=== PATIENT | female | born 1965 | race Caucasian/White ===

== ENCOUNTER 2023-05-16 17:42 | Emergency (ER) | payer BC, SELFPAY ==
[2023-05-16 17:52] VITALS: BP 170/102; PULSE 74; RESP 20; TEMP 37.1; O2SAT 98; BMI 33.8
[2023-05-16 18:09] VITALS: RESP 18
--- NOTE | 2023-05-16 18:27 | ED_ITS ---
Documented by User: Ivan Reece 05/16/23 19:03 HPI - General Adult General Chief complaint: Eye Problems Stated complaint: HYPERTENSION Time Seen by Provider: 05/16/23 17:52 Source: patient Mode of arrival: walk-in Limitations: no limitations History of Present Illness HPI narrative: patient was found to have elevated BP at a physician visit last week. Since then she has been checking her BP at home and recording elevated readings - some have been as high as 179 systolic. She is usually symptom-free but today she had chest pressure, shortness of breath and dizziness and her BP was over 170 systolic and 100 diastolic. She had her family bring her to the ED. SHe is not currently taking anything for her BP. Related Data Home Medications Medication Instructions Recorded Confirmed fluoxetine 20 mg capsule 30 mg PO DAILY 05/16/23 05/16/23 meloxicam 15 mg tablet 15 mg PO DAILY 05/16/23 05/16/23 oxybutynin chloride 15 mg 15 mg PO DAILY 05/16/23 05/16/23 tablet,extended release 24 hr simvastatin 20 mg tablet (Zocor) 20 mg PO DAILY 05/16/23 05/16/23 Previous Rx's Medication Instructions Recorded lisinopril 5 mg tablet 5 mg PO DAILY #30 tabs 05/16/23 Allergies Allergy/AdvReac Type Severity Reaction Status Date / Time No Known Drug Allergies Allergy Verified 05/16/23 17:56 [facility] Medical History (Updated 05/16/23 @ 19:00 by Ivan Reece) Social History Smoking status: Current every day smoker Exam Narrative Exam Narrative: Nurses notes and vital signs reviewed and patient is not hypoxic. afebrile BP initially 170/102 next BP was 138/90 General: Well-appearing and in no apparent distress. Skin: Warm, dry, no pallor noted. Head: Normocephalic, atraumatic. Eye: Pupils are equal, round and EOMI. No scleral icterus. Cardiovascular: Regular Rate and Rhythm without murmur, gallop or rub. Respiratory: No accessory muscle use or respiratory distress. Lungs are clear to auscultation, no wheezing, rales or rhonchi Musculoskeletal: normal ROM, no calf or popliteal tenderness, no lower extremity edema/swelling Neurological: A&O x4. No cranial nerve dysfunction observed. No truncal ataxia. Moves all extremities. Sensation intact. Psychiatric: Cooperative and interactive. Normal mood and affect. Constitutional Vital Signs - 24 hr 05/16/23 17:52 05/16/23 18:09 05/16/23 18:30 Temperature 98.8 F Pulse Rate [Monitor] 74 65 Respiratory Rate 20 18 16 Blood Pressure [Left Arm] 170/102 H 138/90 H Pulse Oximetry 98 97 Oxygen Delivery Method Room Air Room Air 05/16/23 19:02 05/16/23 19:21 Temperature Pulse Rate [Monitor] 60 62 Respiratory Rate 18 20 Blood Pressure [Left Arm] 135/86 H 146/86 H Pulse Oximetry 93 L 93 L Oxygen Delivery Method Room Air Room Air Course Vital Signs Vital signs: Vital Signs Temperature 98.8 F 05/16/23 17:52 Pulse Rate 74 05/16/23 17:52 Respiratory Rate 20 05/16/23 17:52 Blood Pressure 170/102 H 05/16/23 17:52 Pulse Oximetry 98 05/16/23 17:52 Oxygen Delivery Method Room Air 05/16/23 17:52 Temperature 98.8 F 05/16/23 17:52 Pulse Rate 62 05/16/23 19:21 Respiratory Rate 20 05/16/23 19:21 Blood Pressure 146/86 H 05/16/23 19:21 Pulse Oximetry 93 L 05/16/23 19:21 Oxygen Delivery Method Room Air 05/16/23 19:21 Medical Decision Making MDM Narrative Medical decision making narrative: patient experienced chest pressure and dizziness earlier in the day and her blood pressures found be elevated at home. She presents to the emergency department had a blood pressure of 170/102. Still had some residual symptoms but they resolved as BP normalized. . Patient was placed on millstone cleaner and EKG obtained. Blood drawn and sent for evaluation. EKG normal. BP decreased without any treatment although Vasotec had been ordered. CBC & BMP unremarkable. Troponin pending. CXR has not been done yet. Long talk with the patient and family about her symptoms and new onset HTN. She was informed that I will prescribe low dose Lisinopril for her to start. Patient signed out to Dr Harris at shift change to review CXR and troponin. Lab Data Lab results reviewed: Yes I reviewed the patient's lab results Labs: Lab Results 05/16/23 Range/Units 18:37 WBC 7.1 (4.0-11.0) 10^3/uL RBC 4.59 (4.20-5.40) 10^6/uL Hgb 13.8 (12.0-16.0) g/dL Hct 40.2 (36.0-48.0) % MCV 87.6 (81.0-99.0) fL MCH 30.1 (26.7-34.0) pg MCHC 34.3 (29.9-35.2) g/dL RDW 12.1 (11.0-15.0) % Plt Count 225 (150-450) 10^3/uL MPV 10.4 (9.5-13.5) fL Neut % (Auto) 46.8 (43.0-75.0) % Lymph % (Auto) 38.6 (20.5-60.0) % Hooker % (Auto) 9.6 (1.7-12.0) % Eos % (Auto) 3.0 (0.9-7.0) % Baso % (Auto) 1.0 (0.2-2.0) % Neut # (Auto) 3.3 (1.4-6.5) 10^3/uL Lymph # (Auto) 2.7 (1.2-3.8) 10^3/uL Hooker # (Auto) 0.7 (0.3-0.8) 10^3/uL Eos # (Auto) 0.2 (0.0-0.7) 10^3/uL Baso # (Auto) 0.1 (0.0-0.1) 10^3/uL Abs Immat Gran (auto) 0.07 H (0.00-0.03) 10^3/uL Imm/Tot Granulo (auto) 1.0 H (0.0-0.5) % Sodium 140 (136-145) mmol/L Potassium 3.9 (3.5-5.1) mmol/L Chloride 105 (98-107) mmol/L Carbon Dioxide 27.5 (21.0-32.0) mmol/L Anion Gap 11.4 BUN 14.0 (7.0-18.0) mg/dL Creatinine 1.02 (0.55-1.02) mg/dL Est GFR ( Amer) >60 (>=60) Est GFR (Non-Af Amer) 56 L (>=60) BUN/Creatinine Ratio 13.7 Glucose 99 (74-106) mg/dL Calcium 8.9 (8.5-10.1) mg/dL Troponin I High Sens 28.4 (4.0-51.3) pg/mL Discharge Plan Discharge Chief Complaint: Eye Problems Clinical Impression: HTN (hypertension) Patient Disposition: Home, Self-Care Prescriptions / Home Meds: New lisinopril 5 mg tablet 5 mg PO DAILY Qty: 30 0RF No Action fluoxetine 20 mg capsule 30 mg PO DAILY simvastatin [Zocor] 20 mg tablet 20 mg PO DAILY meloxicam 15 mg tablet 15 mg PO DAILY oxybutynin chloride 15 mg tablet extended release 24hr 15 mg PO DAILY Instructions: Hypertension (ED) Stand Alone Forms: Portal Instructions Referrals: Angus Rodriguez MD [Primary Care Provider] - 1 week Documented by User: Janes Harris MD 05/16/23 19:40 HPI - General Adult General Chief complaint: Eye Problems Stated complaint: HYPERTENSION Time Seen by Provider: 05/16/23 17:52 Related Data Home Medications Medication Instructions Recorded Confirmed fluoxetine 20 mg capsule 30 mg PO DAILY 05/16/23 05/16/23 meloxicam 15 mg tablet 15 mg PO DAILY 05/16/23 05/16/23 oxybutynin chloride 15 mg 15 mg PO DAILY 05/16/23 05/16/23 tablet,extended release 24 hr simvastatin 20 mg tablet (Zocor) 20 mg PO DAILY 05/16/23 05/16/23 Previous Rx's Medication Instructions Recorded lisinopril 5 mg tablet 5 mg PO DAILY #30 tabs 05/16/23 Allergies Allergy/AdvReac Type Severity Reaction Status Date / Time No Known Drug Allergies Allergy Verified 05/16/23 17:56 [facility] Medical History (Updated 05/16/23 @ 19:00 by Ivan Reece) Social History Smoking status: Current every day smoker Exam Constitutional Vital Signs - 24 hr 05/16/23 17:52 05/16/23 18:09 05/16/23 18:30 Temperature 98.8 F Pulse Rate [Monitor] 74 65 Respiratory Rate 20 18 16 Blood Pressure [Left Arm] 170/102 H 138/90 H Pulse Oximetry 98 97 Oxygen Delivery Method Room Air Room Air 05/16/23 19:02 05/16/23 19:21 Temperature Pulse Rate [Monitor] 60 62 Respiratory Rate 18 20 Blood Pressure [Left Arm] 135/86 H 146/86 H Pulse Oximetry 93 L 93 L Oxygen Delivery Method Room Air Room Air Course Vital Signs Vital signs: Vital Signs Temperature 98.8 F 05/16/23 17:52 Pulse Rate 74 05/16/23 17:52 Respiratory Rate 20 05/16/23 17:52 Blood Pressure 170/102 H 05/16/23 17:52 Pulse Oximetry 98 05/16/23 17:52 Oxygen Delivery Method Room Air 05/16/23 17:52 Temperature 98.8 F 05/16/23 17:52 Pulse Rate 62 05/16/23 19:21 Respiratory Rate 20 05/16/23 19:21 Blood Pressure 146/86 H 05/16/23 19:21 Pulse Oximetry 93 L 05/16/23 19:21 Oxygen Delivery Method Room Air 05/16/23 19:21 Medical Decision Making MDM Narrative Medical decision making narrative: patient experienced chest pressure and dizziness earlier in the day and her blood pressures found be elevated at home. She presents to the emergency department had a blood pressure of 170/102. Still had some residual symptoms but they resolved as BP normalized. . Patient was placed on millstone cleaner and EKG obtained. Blood drawn and sent for evaluation. EKG normal. BP decreased without any treatment although Vasotec had been ordered. CBC & BMP unremarkable. Troponin pending. CXR has not been done yet. Long talk with the patient and family about her symptoms and new onset HTN. She was informed that I will prescribe low dose Lisinopril for her to start. Patient signed out to Dr Harris at shift change to review CXR and troponin. care signed out at change of shift. labs and cxray pending. Both returned normal. Patient and family informed of the above. family and patient had no further questions and she continued to feel well. Discharged home. Prescription Lisinopril called in by Dr Reece. Patient to follow up with her family doctor Lab Data Labs: Lab Results 05/16/23 Range/Units 18:37 WBC 7.1 (4.0-11.0) 10^3/uL RBC 4.59 (4.20-5.40) 10^6/uL Hgb 13.8 (12.0-16.0) g/dL Hct 40.2 (36.0-48.0) % MCV 87.6 (81.0-99.0) fL MCH 30.1 (26.7-34.0) pg MCHC 34.3 (29.9-35.2) g/dL RDW 12.1 (11.0-15.0) % Plt Count 225 (150-450) 10^3/uL MPV 10.4 (9.5-13.5) fL Neut % (Auto) 46.8 (43.0-75.0) % Lymph % (Auto) 38.6 (20.5-60.0) % Hooker % (Auto) 9.6 (1.7-12.0) % Eos % (Auto) 3.0 (0.9-7.0) % Baso % (Auto) 1.0 (0.2-2.0) % Neut # (Auto) 3.3 (1.4-6.5) 10^3/uL Lymph # (Auto) 2.7 (1.2-3.8) 10^3/uL Hooker # (Auto) 0.7 (0.3-0.8) 10^3/uL Eos # (Auto) 0.2 (0.0-0.7) 10^3/uL Baso # (Auto) 0.1 (0.0-0.1) 10^3/uL Abs Immat Gran (auto) 0.07 H (0.00-0.03) 10^3/uL Imm/Tot Granulo (auto) 1.0 H (0.0-0.5) % Sodium 140 (136-145) mmol/L Potassium 3.9 (3.5-5.1) mmol/L Chloride 105 (98-107) mmol/L Carbon Dioxide 27.5 (21.0-32.0) mmol/L Anion Gap 11.4 BUN 14.0 (7.0-18.0) mg/dL Creatinine 1.02 (0.55-1.02) mg/dL Est GFR ( Amer) >60 (>=60) Est GFR (Non-Af Amer) 56 L (>=60) BUN/Creatinine Ratio 13.7 Glucose 99 (74-106) mg/dL Calcium 8.9 (8.5-10.1) mg/dL Troponin I High Sens 28.4 (4.0-51.3) pg/mL Discharge Plan Discharge Chief Complaint: Eye Problems Clinical Impression: HTN (hypertension) Patient Disposition: Home, Self-Care Prescriptions / Home Meds: New lisinopril 5 mg tablet 5 mg PO DAILY Qty: 30 0RF No Action fluoxetine 20 mg capsule 30 mg PO DAILY simvastatin [Zocor] 20 mg tablet 20 mg PO DAILY meloxicam 15 mg tablet 15 mg PO DAILY oxybutynin chloride 15 mg tablet extended release 24hr 15 mg PO DAILY Instructions: Hypertension (ED) Stand Alone Forms: Portal Instructions Referrals: Angus Rodriguez MD [Primary Care Provider] - 1 week
[2023-05-16 18:30] VITALS: BP 138/90; PULSE 65; RESP 16; O2SAT 97
--- NOTE | 2023-05-16 18:42 | ECG_ITS ---
The [facility] Test Date: 2023-05-16 Pat Name: KEATON HARE Department: Room: - Gender: Female [employer]: : 1965 Requested By: ALEXANDRA COLLINS Order Number: [id number] Reading MD: ALEXANDRA COLLINS Measurements Intervals Nixon Rate: 62 P: 40 VT: 192 QRS: 21 QRSD: 78 T: 6 QT: 424 QTc: 430 Interpretive Statements 1100 Sinus rhythm Non-Specific T wave inversion in III 9110 normal ECG No previous ECG available for comparison Electronically Signed On 05-17-2023 7:29:30 EDT by ALEXANDRA COLLINS
[2023-05-16 18:46] LABS: Basophils Absolute Auto 0.1 10^3/uL (0.0-0.1); Eosinophils Absolute Auto 0.2 10^3/uL (0.0-0.7); Hematocrit 40.2 % (36.0-48.0); Hemoglobin 13.8 g/dL (12.0-16.0); Immature Granulocytes Abs Auto 0.07 10^3/uL (0.00-0.03); Lymphocytes Absolute Auto 2.7 10^3/uL (1.2-3.8); Lymphocytes Percent Auto 38.6 % (20.5-60.0); Mean Corpuscular HGB Conc 34.3 g/dL (29.9-35.2); Mean Corpuscular Hemoglobin 30.1 pg (26.7-34.0); Mean Corpuscular Volume 87.6 fL (81.0-99.0); Mean Platelet Volume 10.4 fL (9.5-13.5); Monocytes Absolute Auto 0.7 10^3/uL (0.3-0.8); Monocytes Percent Auto 9.6 % (1.7-12.0); Neutrophils Absolute Auto 3.3 10^3/uL (1.4-6.5); Neutrophils Percent Auto 46.8 % (43.0-75.0); Platelet Count 225 10^3/uL (150-450); Red Blood Count 4.59 10^6/uL (4.20-5.40); Red Cell Distribution Width 12.1 % (11.0-15.0); White Blood Count 7.1 10^3/uL (4.0-11.0)
[2023-05-16 18:52] LABS: Anion Gap 11.4; BUN Creatinine Ratio 13.7; Calcium 8.9 mg/dL (8.5-10.1); Carbon Dioxide 27.5 mmol/L (21.0-32.0); Chloride 105 mmol/L (98-107); Estimated GFR (African America >60 (>=60); Estimated GFR (Non-African Ame 56 (>=60); Glucose 99 mg/dL (74-106); Potassium 3.9 mmol/L (3.5-5.1); Sodium 140 mmol/L (136-145)
--- NOTE | 2023-05-16 18:55 | XR_ITS ---
[address] [address] Patient Name: KEATON HARE MRN: [id number] date: 1965 Sex: F Assigned Patient Location: ER Current Patient Location: ED.MAIN Accession/Order Number: [id number] Exam Date: 05/16/2023 19:12 Report Date: 05/16/2023 19:32 At the request of: ANA DE LEON Procedure: XR chest 1V EXAMINATION: XR chest 1V HISTORY: Hypertension COMPARISON: None. TECHNIQUE: Portable chest FINDINGS: The lung parenchyma is free of consolidation or infiltrate. No pneumothorax or pleural effusion. The cardiac, mediastinal and hilar contours are normal. The visualized osseous structures exhibit no gross abnormality. IMPRESSION: No acute cardiopulmonary abnormality. Electronically authenticated by: JORDIN GAINES Date: 05/16/2023 19:32
[2023-05-16 19:02] VITALS: BP 135/86; PULSE 60; RESP 18; O2SAT 93
[2023-05-16 19:16] LABS: Troponin I High Sensitivity 28.4 pg/mL (4.0-51.3)
[2023-05-16 19:21] VITALS: BP 146/86; PULSE 62; RESP 20; O2SAT 93
== END 2023-05-16 19:48 | disposition home or self-care (01) ==
PROVIDERS: Emergency Medicine; Emergency Provider Internal Medicine; PCP Family Medicine
DX: I10 Essential (primary) hypertension (principal); F17.210 Nicotine dependence, cigarettes, uncomplicated; Z79.899 Other long term (current) drug therapy
CPT/HCPCS: 36415; 71045; 80048; 84484; 85025; 93005; 96374; 99285

== ENCOUNTER 2023-05-26 12:05 | Outpatient (OUT) | payer BC, SELFPAY ==
--- NOTE | 2023-05-26 12:10 | XR_ITS ---
The [address] [address] Patient Name: KEATON HARE MRN: [id number] date: 1965 Sex: F Assigned Patient Location: [facility] Current Patient Location: Accession/Order Number: [id number] Exam Date: 05/26/2023 12:15 Report Date: 05/27/2023 07:11 At the request of: ALEXANDRA COLLINS Procedure: XR lumbar spine 2-3V EXAMINATION: XR lumbar spine 2-3V HISTORY: Lumbar radicular pain M54.16 ; low back pain with increasing bilateral leg pain COMPARISON: No relevant comparison available. FINDINGS: BONES: Mild degenerative facet arthropathy L3-4, L5-S1. No fracture or spondylolisthesis. DISC SPACES: Mild-moderate narrowing at all levels except L4-5. Posterior disc-osteophyte complexes L2-3 through L4-5. PARASPINOUS: Negative. No paraspinous abnormality is seen. OTHER: Negative. XR/XR lumbar spine 2-3V IMPRESSION: 1. Multilevel mild-moderate degenerative disc disease and posterior disc-osteophyte complexes likely narrowing the central canal and neural foramen. Consider MRI for further evaluation. Electronically authenticated by: JAMESON ZHANG Date: 05/27/2023 07:11
== END 2023-05-26 12:06 | disposition home or self-care (01) ==
LOC: RAD 12:06
PROVIDERS: PCP Family Medicine; Visit Provider Family Medicine
DX: M54.16 Radiculopathy, lumbar region (principal)
CPT/HCPCS: 72100

== ENCOUNTER 2023-08-02 13:55 | Outpatient (OUT) | payer BC, SELFPAY ==
--- NOTE | 2023-08-02 16:17 | PM.CN ---
Consult Note: HPI Data of Consult Patient: new to practice Consult date: 08/02/23 Requesting Physician: Luci Murguia MD Primary Care Provider: Angus Rodriguez MD Consult Narrative Reason for consult: low back pain Narrative: 57yof who presents for evaluation. worsening low back pain that is exacerbated with activity. imaging reviewed, which shows facet arthropathy in the lower lumbar spine. engaged in >6 weeks of provider directed home exercise program, with limited relief. uses otc pain medicine, as needed. cc:: CC: Luci Murguia MD Review of Systems ROS Status of ROS 10 or more systems reviewed and unremarkable except as noted in history and below [facility] Medical History Social History Smoking status: Current every day smoker Meds Home Medications and Allergies Home Medications Medication Instructions Recorded Confirmed Type fluoxetine 20 mg capsule 20 mg PO DAILY 05/16/23 08/02/23 History lisinopril 5 mg tablet 5 mg PO DAILY #30 tabs 05/16/23 Rx meloxicam 15 mg tablet 15 mg PO DAILY 05/16/23 05/16/23 History oxybutynin chloride 15 mg 30 mg PO DAILY 05/16/23 08/02/23 History tablet,extended release 24 hr simvastatin 20 mg tablet (Zocor) 20 mg PO DAILY 05/16/23 05/16/23 History lansoprazole 30 mg capsule,delayed 30 mg PO QDAY 08/02/23 08/02/23 History release Allergies Allergy/AdvReac Type Severity Reaction Status Date / Time No Known Drug Allergies Allergy Verified 05/16/23 17:56 Exam Narrative Exam Narrative: Psych-alert and oriented x 3. Attentive and appropriate, constitutionally normal, displays normal mood and affect per situation.? There are no obvious deficits in memory, reasoning, or intellect.? Skin-no obvious rashes, bruising, erythema noted to the patient's area of pain. Extremities- extremities are warm with minimal edema and palpable pulses. Lumbar-no significant tenderness to palpation noted in the lumbar spine and paraspinal musculature.? Pain is elicited with extension, and lateral rotation of the lumbar spine. Range of motion is slightly diminished with these motions due to pain. Facet loading maneuvers are positive bilaterally and do appear to be concordant with the patient's normal complaints of pain.? Coordination remains intact.? Gait remains non-antalgic. Assessment and Plan Assessment and Plan (1) Lumbar spondylosis: Plan 57yof who presents for evaluation. failed conservative measures, as noted. imaging reviewed, as noted. given symptoms and imaging, prudent to attempt diagnostic bilateral l4-5, l5-s1 medial branch block under fluoroscopic guidance with intention of proceeding to radiofrequency ablation. she is in agreement. medications reviewed, no changes. follow up after procedure.
== END 2023-08-02 13:56 | disposition home or self-care (01) ==
LOC: PM 13:55
PROVIDERS: PCP Family Medicine; Visit Provider Anesthesiology
DX: M47.816 Spondylosis without myelopathy or radiculopathy, lumbar region (principal)
CPT/HCPCS: G0463

== ENCOUNTER 2023-08-30 08:07 | Day surgery (SDC) | payer BC, SELFPAY ==
[2023-08-30 08:41] VITALS: BP 128/93; PULSE 76; RESP 16; TEMP 36.5; O2SAT 98
[2023-08-30 09:20] VITALS: BP 141/83; PULSE 68; RESP 18; O2SAT 96
[2023-08-30] MEDS: BUPIVACAINE HCL 0.5% PF 50 MG/10 ML VIAL 8 ML INJ (09:22)
[2023-08-30] MEDS: TRIAMCINOLONE ACETONIDE 40 MG/ML VIAL INJ (09:22)
[2023-08-30] MEDS: LIDOCAINE HCL 2% PF 100 MG/5 ML VIAL INJ (09:22)
[2023-08-30 09:27] VITALS: BP 113/62; PULSE 65; RESP 16; O2SAT 95
--- NOTE | 2023-08-30 09:30 | W.PM.PROCNOT ---
Date of procedure: 08/30/23 Pre-op diagnosis: Lumbar spondylosis Post-op diagnosis: same as pre-op Procedure: Procedure: Bilateral L4-5, L5-S1 medial branch block Medications: Bupivacaine 0.25% 4cc The patient was seen and examined in the preoperative holding area.? An informed consent was obtained and placed on the chart.? The patient was brought to the medical procedure unit and placed in the prone position.? A timeout was completed verifying correct patient, procedure site, positioning, plan, and special equipment.? Using aseptic technique, the needle was placed at left L4. Under direct fluoroscopic visualization a Quincke-tipped spinal needle was advanced to the junction of the superior articulating process with the transverse process at the designated medial branch segment.? Preceded by negative aspiration, the above-mentioned injectate was placed in 1 mL aliquots.? The procedure was repeated at left L5, S1.? The needle was removed and insertion site was covered. The same procedure, at the same levels, was completed on the right side. The patient was taken to the postprocedural recovery area and monitored for an appropriate length of time before found suitable for discharge in the company of a responsible adult. Anesthesia: Local Surgeon: Luci Murguia Pathology: none sent Condition: stable Disposition: no change
== END 2023-08-30 09:36 | disposition home or self-care (01) ==
PROVIDERS: PCP Family Medicine; Visit Provider Anesthesiology
DX: M47.816 Spondylosis without myelopathy or radiculopathy, lumbar region (principal)
CPT/HCPCS: 64493; 64494

== ENCOUNTER 2023-09-09 12:15 | Outpatient (OUT) | payer BC, SELFPAY ==
--- NOTE | 2023-09-09 12:50 | P.CN_ITS ---
Consult Note: HPI Data of Consult Patient: known to practice within the last 3 years Requesting Physician: Claudia Austin NP Primary Care Provider: Angus Rodriguez MD Consult Narrative Reason for consult: procedure f/u Narrative: Mirlande Rojas a pleasant 58 year old female presents for evaluation and management of chronic low back pain. The patient has had over 3 months of moderate to severe low back pain with functional impairment and inadequate response to conservative care including NSAIDS (unless there are contraindication such as concurrent blood thinners), multiple oral or topical pain medications, and home exercise program/physical therapy.? Patient has completed >6 weeks of guided home exercise program and/or formal physical therapy program without relief of their symptoms.?I have reviewed the imaging of the lumbar spine and no red flags were identified.? The imaging reveals radiographic findings consistent with lumbar spondylosis. Today patients pain is 7/10 in low back without radiculopathy. Patient had 90% pain relief and functional improvement immediately following and hours after bilateral L4-5 L5- S1 MBB #1. Would like to discuss proceeding with MBB#2 working towards thermal RFA. cc:: CC: Claudia Austin NP Review of Systems ROS Status of ROS 10 or more systems reviewed and unremarkable except as noted in history and below Musculoskeletal Reports: back pain PFSH PFSH Medical History Anxiety ?F41.9 - Anxiety disorder, unspecified (ICD-10) Arthritis ?M19.90 - Unspecified osteoarthritis, unspecified site (ICD-10) GERD (gastroesophageal reflux disease) ?K21.9 - Gastro-esophageal reflux disease without esophagitis (ICD-10) High cholesterol ?E78.00 - Pure hypercholesterolemia, unspecified (ICD-10) Overactive bladder ?N32.81 - Overactive bladder (ICD-10) Social History Smoking status: Current every day smoker Meds Home Medications and Allergies Home Medications Medication Instructions Recorded Confirmed Type fluoxetine 20 mg capsule 20 mg PO DAILY 05/16/23 08/30/23 History lisinopril 5 mg tablet 5 mg PO DAILY #30 tabs 05/16/23 08/30/23 Rx meloxicam 15 mg tablet 15 mg PO DAILY 05/16/23 08/30/23 History oxybutynin chloride 15 mg 30 mg PO DAILY 05/16/23 08/30/23 History tablet,extended release 24 hr simvastatin 20 mg tablet (Zocor) 20 mg PO DAILY 05/16/23 08/30/23 History lansoprazole 30 mg capsule,delayed 30 mg PO QDAY 08/02/23 08/30/23 History release Allergies Allergy/AdvReac Type Severity Reaction Status Date / Time No Known Drug Allergies Allergy Verified 08/30/23 08:35 Exam Narrative Exam Narrative: Psych-alert and oriented x 3. Attentive and appropriate, constitutionally lori l, displays normal mood and affect per situation.? There are no obvious deficits in memory, reasoning, or intellect.? Skin-no obvious rashes, bruising, erythema noted to the patient's area of pain. Extremities- extremities are warm with minimal edema and palpable pulses. Lumbar-no significant tenderness to palpation noted in the lumbar spine and paraspinal musculature.? Pain is elicited with extension, and lateral rotation of the lumbar spine. Range of motion is slightly diminished with these motions due to pain. Facet loading maneuvers are positive bilaterally and do appear to be concordant with the patient's normal complaints of pain.? Coordination remains intact.? Gait remains non-antalgic. Constitutional Documenting provider has reviewed patient's vital signs: yes Common normals: no apparent distress, oriented x3, healthy appearing, alert and well nourished General appearance: cooperative [facility] Common normals: normocephalic, hearing grossly normal bilaterally and moist oral mucous membranes Head and scalp: normocephalic Eye Common normals: PERRL Pupil: PERRL Neck & C-Spine Common normals: full ROM General: normal visual inspection Chest Common normals: inspection of chest normal Respiratory Common normals: normal respiratory effort, no retractions and no use of accessory muscles Neuro Common normals: oriented x3, CN's II-XII intact bilaterally, moves all extremities, no focal motor deficits, no sensory deficits noted and deep tendon reflexes 2+ bilaterally Sensorium/orientation: alert Motor exam: strength 5/5 throughout and no movement abnormalities noted Psych Common normals: mental status grossly normal, thought process normal, cooperative, affect normal, speech normal and activity/motor behavior normal Speech: normal speech Thought process: normal thought process Results Additional Findings Additional findings: I have checked an [place] report on this patient today and there are no aberrancies noted in the prescribing history.?? A drug screen was completed and reviewed within the last year, and if there has not been a drug screen completed we ordered one today to monitor higher risk, state monitored pain medication use. As part of providing excellent, safe, comprehensive care, the following was completed at our patient's visit: 1. A medication reconciliation and review to ensure accurate knowledge of current/active medications, including asking our patients to inform us about any [id number] medications or herbal remedies/nutritional coto pplements/alternative remedies. 2. A review to specifically ensure our patients have had annual screening for: elevated body mass index (BMI), tobacco use, screening for depression, and screening for unhealthy alcohol use. When screening is concerning, patients are provided with education and the specific recommendation to discuss the concerning health issue and treatment options with their primary care provider. Assessment and Plan Assessment and Plan (1) Lumbar spondylosis: Assessment and Plan: we discussed the risks and benefits of the procedure with the patient The procedure will be completed with fluoroscopic guidance.? Plan instructed to stop Mobic, has noticed increase in GERD symptoms utilize acetaminophen PRN up to 3000mg daily proceed with bilateral L4-5 L5-S1 MBB#2 under fluoroscopy working towards thermal RFA f/u 1 week after MBB #2
== END 2023-09-09 12:16 | disposition home or self-care (01) ==
LOC: PM 12:15
PROVIDERS: PCP Family Medicine; Visit Provider Nurse Practitioner
DX: M47.816 Spondylosis without myelopathy or radiculopathy, lumbar region (principal)
CPT/HCPCS: G0463

== ENCOUNTER 2023-09-20 08:54 | Day surgery (SDC) | payer BC, SELFPAY ==
[2023-09-20 09:46] VITALS: BP 136/90; PULSE 76; RESP 16; TEMP 36.7; O2SAT 99
[2023-09-20 10:16] VITALS: BP 145/73; PULSE 73; RESP 18; O2SAT 95
[2023-09-20] MEDS: BUPIVACAINE HCL 0.5% PF 50 MG/10 ML VIAL 8 ML INJ (10:19)
[2023-09-20] MEDS: LIDOCAINE HCL 2% PF 100 MG/5 ML VIAL 1 ML INJ (10:19)
[2023-09-20 10:21] VITALS: BP 143/73; PULSE 72; RESP 18
[2023-09-20 10:22] VITALS: O2SAT 99
--- NOTE | 2023-09-20 10:23 | W.PM.PROCNOT ---
Date of procedure: 09/20/23 Pre-op diagnosis: Lumbar spondylosis Post-op diagnosis: same as pre-op Procedure: Procedure: Bilateral L4-5, L5-S1 medial branch block Medications: Bupivacaine 0.5% 4cc x2 The patient was seen and examined in the preoperative holding area.? An informed consent was obtained and placed on the chart.? The patient was brought to the medical procedure unit and placed in the prone position.? A timeout was completed verifying correct patient, procedure site, positioning, plan, and special equipment.? Using aseptic technique, the needle was placed at left L4. Under direct fluoroscopic visualization a Quincke-tipped spinal needle was advanced to the junction of the superior articulating process with the transverse process at the designated medial branch segment.? Preceded by negative aspiration, the above-mentioned injectate was placed in 1 mL aliquots.? The procedure was repeated at left L5, S1.? The needle was removed and insertion site was covered. The same procedure, at the same levels, was completed on the right side. The patient was taken to the postprocedural recovery area and monitored for an appropriate length of time before found suitable for discharge in the company of a responsible adult. Anesthesia: Local Surgeon: Luci Murguia Pathology: none sent Condition: stable Disposition: no change
== END 2023-09-20 10:26 | disposition home or self-care (01) ==
PROVIDERS: PCP Family Medicine; Visit Provider Anesthesiology
DX: M47.816 Spondylosis without myelopathy or radiculopathy, lumbar region (principal)
CPT/HCPCS: 64493; 64494

== ENCOUNTER 2023-09-30 08:39 | Outpatient (OUT) | payer BC, SELFPAY ==
--- NOTE | 2023-09-30 08:57 | P.CN_ITS ---
Consult Note: HPI Data of Consult Patient: known to practice within the last 3 years Requesting Physician: Claudia Austin NP Primary Care Provider: Angus Rodriguez MD Consult Narrative Reason for consult: procedure f/u Narrative: Mirlande Rojas a pleasant 58 year old female presents for evaluation and management of chronic low back pain. The patient has had over 3 months of moderate to severe low back pain with functional impairment and inadequate response to conservative care including NSAIDS (unless there are contraindication such as concurrent blood thinners), multiple oral or topical pain medications, and home exercise program/physical therapy.? Patient has completed >6 weeks of guided home exercise program and/or formal physical therapy program without relief of their symptoms.?I have reviewed the imaging of the lumbar spine and no red flags were identified.? The imaging reveals radiographic findings consistent with lumbar spondylosis. Today patients pain is 4/10 in low back without radiculopathy. Patient had 90% pain relief and functional improvement immediately following and hours after bilateral L4-5 L5- S1 MBB #2. cc:: CC: Claudia Austin NP Review of Systems ROS Status of ROS 10 or more systems reviewed and unremarkable except as noted in history and below Musculoskeletal Reports: back pain PFSH PFSH Medical History Anxiety ?F41.9 - Anxiety disorder, unspecified (ICD-10) Arthritis ?M19.90 - Unspecified osteoarthritis, unspecified site (ICD-10) GERD (gastroesophageal reflux disease) ?K21.9 - Gastro-esophageal reflux disease without esophagitis (ICD-10) High cholesterol ?E78.00 - Pure hypercholesterolemia, unspecified (ICD-10) Overactive bladder ?N32.81 - Overactive bladder (ICD-10) Social History Smoking status: Current every day smoker Meds Home Medications and Allergies Home Medications Medication Instructions Recorded Confirmed Type fluoxetine 20 mg capsule 20 mg PO DAILY 05/16/23 09/20/23 History lisinopril 5 mg tablet 5 mg PO DAILY #30 tabs 05/16/23 09/20/23 Rx meloxicam 15 mg tablet 15 mg PO DAILY 05/16/23 09/20/23 History oxybutynin chloride 15 mg 30 mg PO DAILY 05/16/23 09/20/23 History tablet,extended release 24 hr simvastatin 20 mg tablet (Zocor) 20 mg PO DAILY 05/16/23 09/20/23 History lansoprazole 30 mg capsule,delayed 30 mg PO QDAY 08/02/23 09/20/23 History release diazepam 10 mg tablet mg 09/20/23 History Allergies Allergy/AdvReac Type Severity Reaction Status Date / Time No Known Drug Allergies Allergy Verified 09/20/23 09:35 Exam Constitutional Documenting provider has reviewed patient's vital signs: yes (elevated BP, asymptomatic) Common normals: no apparent distress, oriented x3, healthy appearing, alert and well nourished General appearance: cooperative HENMT Common normals: normocephalic, hearing grossly normal bilaterally and moist oral mucous membranes Head and scalp: normocephalic Eye Common normals: PERRL Pupil: PERRL Neck & C-Spine Common normals: full ROM General: normal visual inspection Chest Common normals: inspection of chest normal Respiratory Common normals: normal respiratory effort, no retractions and no use of accessory muscles Back & Pelvis Lumbar spine/lower back: ROM limited and pain with ROM Other: bilateral facet loading axial low back pain without radiculopathy Neuro Common normals: oriented x3, CN's II-XII intact bilaterally, moves all extremities, no focal motor deficits, no sensory deficits noted and deep tendon reflexes 2+ bilaterally Sensorium/orientation: alert Motor exam: strength 5/5 throughout and no movement abnormalities noted Psych Common normals: mental status grossly normal, thought process normal, cooperative, affect normal, speech normal and activity/motor behavior normal Speech: normal speech Thought process: normal thought process Results Additional Findings Additional findings: I have checked an [facility] report on this patient today and there are no aberrancies noted in the prescribing history.?? A drug screen was completed and reviewed within the last year, and if there has not been a drug screen completed we ordered one today to monitor higher risk, state monitored pain medication use. As part of providing excellent, safe, comprehensive care, the following was completed at our patient's visit: 1. A medication reconciliation and review to ensure accurate knowledge of current/active medications, including asking our patients to inform us about any [id number] medications or herbal remedies/nutritional supplements/alternative remedies. 2. A review to specifically ensure our patients have had annual screening for: elevated body mass index (BMI), tobacco use, screening for depression, and screening for unhealthy alcohol use. When screening is concerning, patients are provided with education and the specific recommendation to discuss the concerning health issue and treatment options with their primary care provider. Assessment and Plan Assessment and Plan (1) Lumbar spondylosis: Assessment and Plan: FELIPE 31% with modewrate pain, pain that prevents her from lifting heavy weights, pain that prevents her from sitting more than 1 hour, pain interferes with sleep and travel (2) HTN (hypertension): Assessment and Plan: Blood pressure is elevated today. No signs or symptoms of DE/CVA including chest pain, SOB, left sided acute neck, arm, or jaw pain (separate from chronic pain complaint), diaphoresis, facial drooping, new acute neuro changes in both upper and lower extremities (other than those mentioned in the note above). Recommend follow up with PCP for further evaluation and treatment.? (3) Anxiety: Plan bilateral L4/5 L5/S1 RFA under fluoroscopy continue PRN tylenol continue HEP as tolerated f/u 1 month after RFA
== END 2023-09-30 08:40 | disposition home or self-care (01) ==
LOC: PM 08:39
PROVIDERS: PCP Family Medicine; Visit Provider Nurse Practitioner
DX: M47.816 Spondylosis without myelopathy or radiculopathy, lumbar region (principal); I10 Essential (primary) hypertension; F41.9 Anxiety disorder, unspecified
CPT/HCPCS: G0463

== ENCOUNTER 2023-11-01 07:18 | Day surgery (SDC) | payer BC, SELFPAY ==
[2023-11-01 07:38] VITALS: BP 135/95; PULSE 89; RESP 16; TEMP 36.6; O2SAT 96
[2023-11-01 08:18] VITALS: BP 144/84; PULSE 73; RESP 18; O2SAT 94
[2023-11-01 08:22] VITALS: BP 140/88; PULSE 88; RESP 18; O2SAT 98
--- NOTE | 2023-11-01 08:27 | P.ON_ITS ---
Date of procedure: 11/01/23 Pre-op diagnosis: Lumbar spondylosis Post-op diagnosis: same as pre-op Procedure: Procedure: Right L4-5, L5-S1 radiofrequency ablation Medications: Bupivacaine 0.25% 3cc, lidocaine 2% 3cc, kenalog 40mg The patient was seen and examined in the preoperative holding area.? The site was marked.? Written informed consent was obtained and placed on the chart.? The patient was brought to the medical procedure unit and placed in the prone position.? A timeout was completed verifying correct patient, procedure, positioning, and special requirements.? The skin overlying the target points, the designated medial branch, were prepped and draped in the usual sterile fashion.? The target point was achieved with a 20-gauge 15 cm with a 10 mm curved active tip radiofrequency cannula under direct fluoroscopic visualization.? The needle was inserted at level L4 on the right side. Needle tip position was confirmed with lateral fluoroscopic position.? Motor stimulation was carried out at 2 Hz up to 5 volts with the absence of extremity activity.? This was repeated at level L5, S1 on right side.?? Sensory stimulation was carried out.? Concordant pain was realized at the above- mentioned sites.? Then radiofrequency lesioning was carried out times 90 seconds at 80 degrees times 2 lesions at each level.? The radiofrequency probe was removed prior to cannula removal.? The above-mentioned injectate was placed in 1 mL increments.? The needle was removed.? Insertion sites were covered.? The patient was taken to the postoperative recovery area and monitored for an appropriate length of time before being found suitable for discharge in the company of a responsible adult. Anesthesia: Local Surgeon: Luci Murguia Pathology: none sent Condition: stable Disposition: no change
[2023-11-01] MEDS: LIDOCAINE HCL 2% 400 MG/20 ML MDV 9 ML INJ (08:29)
[2023-11-01] MEDS: TRIAMCINOLONE ACETONIDE 40 MG/ML VIAL INJ (08:29)
[2023-11-01] MEDS: BUPIVACAINE HCL 0.25% PF 25 MG/10 ML VIAL 2 ML INJ (08:29)
== END 2023-11-01 08:34 | disposition home or self-care (01) ==
PROVIDERS: PCP Family Medicine; Visit Provider Anesthesiology
DX: M47.816 Spondylosis without myelopathy or radiculopathy, lumbar region (principal)
CPT/HCPCS: 64635; 64636

== ENCOUNTER 2023-12-06 06:54 | Day surgery (SDC) | payer BC, SELFPAY ==
--- OUTSIDE RECORDS SUMMARY | 2023-12-06 06:57 | XMS_ITS | CCD ---
Author Name Unknown Address [address] [facility] [address] [place] [address] Organization [facility] Care Team Providers Care Blocker [employer] Forms Name Role Phone KARINA ., DR MORRIS Admitting Unavailable KARINA ., DR MORRIS Attending Unavailable KARINA ., DR MORRIS Primary Care Unavailable KARINA ., DR MORRIS Consulting MD Alexandra Ortega Primary Care Provider [phone] MD Jordana Ruiz Attending Provider Alexandra Rodriguez MD [facility] Unavaila rell Macias PA-C, Yanira Nick Attending Adina Alexandra Brunson MD [facility] Unavaila rell Macias PA-C, Yanira Nick Attending Adina Alexandra Brunson MD [facility] Unavaila rell Macias PA-C, Yanira Nick Attending Adina Alexandra Brunson MD [facility] UnavailAlexandra Gray MD Attending UnavailAlexandra Gray MD Admitting Unavaila rell Murguia MD, Luci Kulkarni Attending Unavailable Alexandra Rodriguez MD [facility] Unavaila rell Murguia MD, Luci Kulkarni Attending Unavailable Alexandra Rodriguez MD [facility] Unavaila rell Murguia MD, Luci Kulkarni Attending Unavailable Alexandra Rodriguez MD [facility] Unavailveronica [facility] Macias PA-C, Yanira Nick Attending Adina natacha Murguia MD, Luci Kulkarni Attending Unavailable Alexandra Rodriguez MD [facility] Unavaila rell Macias PA-C, Yanira Nick Attending Adina Alexandra Brunson MD [facility] UnavailMD Alexandra Gray Primary Care Provider MD Jordana Ruiz Attending Provider Alexandra Rodriguez Primary Care Unavailable Asaad, Imad Admitting Unavailable Sara Imad Attending Unavailable Alexandra Rodriguez Primary Care Unavailable Asaad, Imad Admitting Unavailable Sara Imad Attending Unavailable Medications Current Medications Medication Drug Class(es) Dates Sig (Normalized) Sig (Original) FLUoxetine 10 mg oral capsule (4 sources) Serotonin Reuptake Inhibitor Start: 08-16-2023 take 10 mg by mouth once daily Fluoxetine Active 10 MG PO Daily August 15, 2023 11:00pm Start: 08-10-2018 take 20 mg by mouth once daily Fluoxetine Active 20 MG PO Daily August 09, 2018 11:00pm lansoprazole 30 mg delayed release oral capsule (2 sources) Proton Pump Inhibitor Start: 08-16-2023 take 30 mg by mouth once daily Lansoprazole Active 30 MG PO Daily August 15, 2023 11:00pm lisinopril 5 mg oral tablet (2 sources) Angiotensin Converting Enzyme Inhibitor Start: 08-16-2023 take 5 mg by mouth once daily Lisinopril Active 5 MG PO Daily August 15, 2023 11:00pm meloxicam 15 mg oral tablet (2 sources) Nonsteroidal Anti-inflammatory Drug Start: 08-16-2023 take 15 mg by mouth once daily Meloxicam Active 15 MG PO Daily August 15, 2023 11:00pm 24 hr oxybutynin chloride 15 mg extended release oral tablet (2 sources) Cholinergic Muscarinic Antagonist Start: 08-16-2023 take 15 mg by mouth once daily Oxybutynin Chloride Active 15 MG PO Daily August 15, 2023 11:00pm simvastatin 20 mg oral tablet (2 sources) HMG-CoA Reductase Inhibitor Start: 08-10-2018 take 20 mg by mouth once daily Simvastatin Active 20 MG PO Daily August 09, 2018 11:00pm Completed/Discontinued Medications Medication Drug Class(es) Dates Sig (Normalized) Sig (Original) celecoxib 200 mg oral capsule (2 sources) Nonsteroidal Anti-inflammatory Drug Start: 08-10-2018 End: 08-16-2023 take 200 mg by mouth once daily Celecoxib Discontinued 200 MG PO Daily August 09, 2018 11:00pm August 16, 2023 6:28am phentermine hydrochloride 37.5 mg oral tablet (2 sources) Sympathomimetic Amine Anorectic Start: 08-10-2018 End: 08-16-2023 take 1 tablet by mouth once daily Phentermine (Adipex-P) 37.5 mg tablet Discontinued 37.5 MG PO Daily August 09, 2018 11:00pm August 16, 2023 6:24am Problems Problem Classification Problem Date Documented Da te Episodic/Chronic Malaise and fatigue (1 source) Other fatigue; Translations: [OTHER FATIGUE] Onset: 03-01-2023 Episodic Other and unspecified benign neoplasm (2 sources) History of polyp of colon; Translations: [Personal history of colonic polyps] 08-15-2018 Episodic Other gastrointestinal disorders (2 sources) Occult blood in stools; Translations: [Other fecal abnormalities] 08-15-2018 Episodic Unclassified (1 source) Encounter for screening for malignant neoplasm of colon; Translations: [Encounter for screening for malignant neoplasm of colon] Onset: 08-16-2023 Results Test Name Value Interpretation Reference Range [facility] 11-29-2023 L - -------- Specimen: [id number] Received: 11/29/23 Status: SERGO [facility] Num: [id number] Spec Type: Surgical Subm Dr: Jordana Ruiz MD Tissues: A Colon Biopsy (RECTAL POLYP) Procedures: HE/2, Gross/Micro L4 -------- Age/ Patient Sex Location Account Attending Physician -------- Mirlande Rojas 58/F [id number] Jordana Ruiz MD -------- SPEC NUM: [id number] RECD: 11/29/23 STATUS: SERGO MARTINEZ NUM: [id number] JUSTEN: 11/29/[address] [facility] DR: Jordana Ruiz MD ENTERED: 11/29/23 [facility] DR: MECHELLE TYPE: Surgical DEPT: S ORDERED: HE/2, Gross/Micro L4 ORDERED: HE/2, Gross/Micro L4 Pathological Diagnosis Rectal polyp, polypectomy:: - Hyperplastic polyp Clinical Information Screen Gross Description Received in formalin labeled with the patient's name, date of and rectal polyp are two dangelo tissues measuring 0.1 cm and 0.4 x 0.2 x 0.2 cm. Entirely submitted in one cassette labeled A1. Microscopic Description Two H E slides reviewed. The microscopic examination confirms the diagnosis. CPT Codes 12311 -------- -------- Specimen: [id number] Received: 11/29/23 Status: SERGO Martinez Num: [id number] Spec Type: Surgical Subm Dr: Jordana Ruiz MD Tissues: A Colon Biopsy (RECTAL POLYP) Procedures: HE/Chad, Gross/Micro L4 -------- Patient: Mirlande Rojas [id number] (Continued) -------- Signed (signature on file) Samira Elena MD 11/30/23922 [facility] 08-16-2023 L - -------- Specimen: [id number] Received: 08/16/23 Status: SERGO Martinez Num: [id number] Spec Type: Surgical Subm Dr: Jordana Ruiz MD Tissues: A Colon Biopsy (ASCENDING POLYP) Procedures: HE/5, Gross/Micro L4 -------- Age/ Patient Sex Location Account Attending Physician -------- Mirlande Rojas 57/F [id number] Jordana Ruiz MD -------- SPEC NUM: [id number] RECD: 08/16/23 STATUS: SREGO RICHADRSONElizabeth NUM: [id number] JUSTEN: 08/16/23- [facility] DR: Jordana Ruiz MD ENTERED: 08/16/23 [facility] DR: MECHELLE TYPE: Surgical DEPT: S ORDERED: HE/5, Gross/Micro L4 ORDERED: HE/5, Gross/Micro L4 Pathological Diagnosis Ascending colon polyp biopsy: - Multiple fragments of degenerated vegetable material without any viable colonic mucosa for assessment Clinical Information Screening Gross Description Received in formalin labeled with the patient's name, date of and ascending colon are multiple dangelo tissues and fecal material measuring 1.5 x 0.6 x 0.3 cm in aggregate. Entirely submitted in one cassette labeled A1. Microscopic Description Five H E slides reviewed. The microscopic examination confirms the diagnosis. CPT Codes 61518 -------- -------- Specimen: [id number] Received: 08/16/23 Status: SERGO Martinez Num: [id number] Spec Type: Surgical Subm Dr: Jordana Ruiz MD Tissues: A Colon Biopsy (ASCENDING POLYP) Procedures: HE/Anna, Gross/Micro L4 -------- Patient: Mirlande Rojas [id number] (Continued) -------- Signed (signature on file) Krystal Golden MD 08/17/23 [address] [facility] MRI Spine Lumbar w/o Contras ton 06-21-2023 MRI Spine Lumbar w/o Contrast EXAM: MRI Spine Lumbar w/o Contrast, 06/21/2023 1:03 PM EDT INDICATION: Illness, unspecified COMPARISON: X-rays performed on 05/26/2023. TECHNIQUE: Multiplanar multisequence MR imaging of the lumbar spine was performed without contrast. FINDINGS: Degree of motion artifact mildly degrades image quality. Marrow: Mild to moderate endplate degenerative marrow edema seen at L2-L3. Lumbar alignment: Slight grade 1 retrolisthesis L2-L3 by 2 to 3 mm, chronic in nature. Lumbar vertebral body heights: Normal. Endplate degenerative changes: Moderate endplate degenerative changes L2-L3, lesser degree at other levels. Conus medullaris/cauda equina: Normal. Extraspinal structures: Grossly normal. T12-L1: Minimal disc bulge seen on sagittal imaging. No significant spinal canal or foraminal narrowing. L1-L2: No disc bulge/herniation. No substantial facet arthropathy. No significant spinal canal or foraminal narrowing. L2-L3: Slight grade 1 anterolisthesis. Mild diffuse disc bulge. Shallow left foraminal disc protrusion. Hwbk-dr-bygxnfka left foraminal narrowing. Otherwise normal. L3-L4: Minimal facet arthropathy. Shallow left foraminal disc protrusion with minimal endplate spurring causes mild left foraminal narrowing. Minimal right foraminal narrowing. No spinal canal narrowing. L4-L5: Qqjh-wc-cuefskhx facet arthropathy. Diffuse disc bulge. Mild left foraminal narrowing. Mild right foraminal narrowing. No significant spinal canal narrowing. L5-S1: Zvbc-av-pslletvu facet arthropathy. No significant spinal canal or foraminal narrowing. IMPRESSION: 1. Mild/moderate multilevel lumbar spondylosis as above. Slight grade 1 retrolisthesis L2-L3 is chronic/degenerative in nature. 2. No acute bony finding. 3. Please see above with regards to lumbar spine narrowing. *Please see above discussion for any further level by level details and any other chronic/incidental findings. NOTE: There are 5 lumbar-type vertebrae which are assumed for the purposes of numbering on this exam. Correlating radiographs with this patient's MRI anatomy prior to any planned surgical intervention to accurately confirm the level of interest is recommended. Final Dictated by: Jordan Granado DO Dictated DT/TM: 06/21/2023 5:13 pm Signed by: Jordan Granado DO Signed (Electronic Signature): 06/21/2023 5:17 pm (If Report Is Signed, Electronically Signed in Other Vendor System) Normal [facility] Gynecology Office/Clinic Not zainab 05-10-2023 Gynecology Office/Clinic Note Chief Complaint Annual History of Present Illness Pelvic Pain: No Painful Sex: No Abnormal Vaginal Discharge: No Abnormal Vaginal Bleeding: No Vaginal Dryness: No Vaginal Itch: No Vaginal Burning: No Vaginal Odor: No Hot Flashes: No Night Sweats: No Breast Lump: No Breast Pain: No Contraception Type: Tubal ligation Menstrual Periods: No Reason for No Menstrual Periods: annual Sexually Active: Yes Comments 05/10/23 09:56:00 57 y/o . Annual Exam. Known prolapse-gd 2 cystocele and rectocele not bothersome at this time. Oxybutynin for OAB symptoms-thinks symptoms have returned. She wears pads with both urge and stress incontinence. Changes pad 2-4x daily. Had improvement initially, then they returned. No constipation issues. Doing well on Prozac and requesting to continue. 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 Not able to exercise regularly. No meds covered by [employer]. Last pap: h/o TLH/BSO. Mammogram: 05/04/22 Benign, fatty tissue. Colonoscopy: 2016 in [place], [place]-polyps, Q 5 yrs. Bone Density: 04/24/20 Normal Labs: PCP Dr. Rodriguez-yearly labs Review of Systems Head Migraines: No Headaches: No Eyes Corrective Lenses: None Blurred vision: None Ears, Nose, Throat Congestion: No Vertigo: No Sore throat: No Nasal drainage: No Cardio Respiratory Peripheral edema: No Heart Irregularity: No Chest Pain: No Shortness of Breath: No Gastrointestinal Bloating: No Reflux/heartburn: No Abdominal Pain: No Change in bowel habits: No Urinary Urinary Incontinence: Yes Urinary frequency: Yes Nocturia: Yes Urgency: Yes Painful urination: No Musculoskeletal Back pain: No Muscle aches: No Joint pain: No Integumentary Lesions: No Moles: No Acne: No Hair changes: No Psycho Social Sleep Problems: No Anxiety: No Suicidal Ideation: No Homicidal Ideation: No Depression: No Hematologic/Lymphatic Lymphadenopathy: No Thromboembolism: No Bruising: No Bleeding tendencies: No Endocrine Abnormal weight gain: No Abnormal weight loss: No Fatigue: No Physical Exam Vitals & Measurements BP: 140/86 HT: 180 cm WT: 100.8 kg WT: 100.8 kg (Dosing) BMI: 31.11 General: Alert and oriented, well nourished, no acute distress. Eye: PERRL, EOMI, normal conjunctiva. HEENT:Normocephalic, clear tympanic membranes, normal hearing, moist oral mucosa, no scleral icterus, no sinus tenderness. Neck: Supple, non-tender, no carotid bruits, no JVD, no lymphadenopathy. Lungs: Clear to auscultation and percussion, non-labored respiration. Heart: Normal rate, regular rhythm, no murmur, gallop or edema. Abdomen: Soft, non-tender, non-distended, normal bowel sounds, no masses. Musculoskeletal: Normal range of motion and strength, no tenderness or swelling. Skin: Skin is warm, dry and pink, no rashes or lesions. Neurologic: Awake, alert, and oriented X3, CN II-XII intact. Psychiatric: Cooperative, appropriate mood and affect. Breast exam: No fibrocystic changes noted bilaterally, no masses, tenderness, skin changes or nipple discharge. External Genitalia: Normal urethral meatus, no lesions, vulvar skin intact. Genitourinary: Atrophic vaginal mucosa, no lesions or abnormal discharge, cervix surgically absent, no bleeding. Gd 2 cystocele and rectocele Bimanual exam: Absent uterus-s/p TLH BSO Additional Vitals BP Position/Location: Sitting, Right arm Assessment/Plan 1. Encounter for routine gynecological examination Annual exam 1. Continue with breast self-exam/mammogram/c olonoscopy screening 2. Maintain a low-fat, low sugar diet 3. Weight management, BMI, exercise (30 minutes daily) 4. Water intake (64 oz daily) and decrease caffeine 5. Calcium supplement with Vitamin D 6. Discussed menopausal symptom management 7. We will increase her Oxybutynin to 15mg daily and she will log her symptoms-diary sheets given. She will call in 3-4 weeks for update-if improved will sent 90 day supply to [facility], if no improvement will try alternate medication and fu 4 weeks after. F/u 1 year for annual exam and she will call with any questions/problems prior to next appt. 2. Cystocele, midline 3. Rectocele 4. S/P total hysterectomy and bilateral salpingo-oophorectomy Orders: FLUoxetine, 1 tabs, Oral, Daily, take in addition to 10 for 30mg total, # 90 tabs, 4 Refill(s), Pharmacy: [facility] FLUoxetine, 1 caps, Oral, Daily, take in addition to 20mg for a total of 30mg daily, # 90 caps, 3 Refill(s), [facility]acy: [facility] oxybutynin, 1 tabs, Oral, Daily, # 30 tabs, 2 Refill(s), Pharmacy: [facility] Bone Density (2 Areas) Medical Decision Making Chronic conditions NOT treated during this visit that affected my overall medical decision making: obesity, HTN Treatment plans discussed but not opted for at this time: see above Prescribed medication that requires intensive mon (more content not included)... Normal [facility] CBC AUTO DIFFon 02-23-2023 BASO # 0.1 103/ul Normal 0.0-0.1 [facility] Comment on above: Performed By: #### C BC #### [facility] [address] [place] [address] Dr. Asim Golden Basophils/100 WBC (Bld) 0.9 % Normal 0.2-2.0 [facility] Comment on above: Performed By: #### C BC #### [facility] [address] [place] [address] Dr. Asim Golden EO # 0.2 103/ul Normal 0.0-0.7 [facility] Comment on above: Performed By: #### C BC #### [facility] [address] [place] [address] Dr. Asim Golden Eosinophils/100 WBC (Bld) 2.9 % Normal 0.9-7.0 [facility] Comment on above: Performed By: #### C BC #### [facility] [address] [place] [address] Dr. Asim Golden Erythrocyte distribution width (RBC) [Ratio] 12.0 % Normal 11.0-15.0 [facility] Comment on above: Performed By: #### C BC #### [facility] [address] [place] [address] Dr. Asim Golden Hematocrit (Bld) [Volume fraction] 42.2 % Normal 36.0-48.0 [facility] Comment on above: Performed By: #### C BC #### [facility] [address] [place] [address] Dr. Asim Golden Hemoglobin (Bld) [Mass/Vol] 14.3 g/dL Normal 12.0-16.0 [facility] Comment on above: Performed By: #### C BC #### [facility] [address] [place] [address] Dr. Asim Golden IG # 0.03 10e3/ul Normal 0.00-0.03 [facility] Comment on above: Performed By: #### C BC #### [facility] [address] [place] [address] Dr. Asim Golden IG % 0.5 % Normal 0.0-0.5 [facility] Comment on above: Performed By: #### C BC #### [facility] [address] [place] [address] Dr. Asim Golden LYMPH # 2.1 103/ul Normal 1.2-3.8 [facility] Comment on above: Performed By: #### C BC #### [facility] [address] [place] [address] Dr. Asim Golden Lymphocytes/100 WBC (Bld) 38.2 % Normal 20.5-60.0 [facility] Comment on above: Performed By: #### C BC #### [facility] [address] [place] [address] Dr. Asim Golden MANUAL DIFF REQ NO Normal [facility] Comment on above: Performed By: #### C BC #### [facility] [address] [place] [address] Dr. Asim Golden MCH (RBC) [Entitic mass] 29.6 pg Normal 26.7-34.0 [facility] Comment on above: Performed By: #### C BC #### [facility] [address] [place] [address] Dr. Asim Golden MCHC (RBC) [Mass/Vol] 33.9 g/dL Normal 29.9-35.2 [facility] Comment on above: Performed By: #### C BC #### [facility] [address] [place] [address] Dr. Asim Golden MCV (RBC) [Entitic vol] 87.4 fL Normal 81.0-99.0 [facility] Comment on above: Performed By: #### C BC #### [facility] [address] [place] [address] Dr. Asim Golden MONO # 0.6 103/ul Normal 0.3-0.8 [facility] Comment on above: Performed By: #### C BC #### [facility] [address] [place] [address] Dr. Asim Golden Monocytes/100 WBC (Bld) 10.1 % Normal 1.7-12.0 [facility] Comment on above: Performed By: #### C BC #### [facility] [address] [place] [address] Dr. Asim Golden NEUT # 2.6 103/ul Normal 1.4-6.5 [facility] Comment on above: Performed By: #### C BC #### [facility] [address] [place] [address] Dr. Asim Golden Neutrophils/100 WBC (Bld) 47.4 % Normal 43.0-75.0 [facility] Comment on above: Performed By: #### C BC #### [facility] [address] [place] [address] Dr. Asim Golden Platelet mean volume (Bld) [Entitic vol] 10.2 fL Normal 9.5-13.5 [facility] Comment on above: Performed By: #### C BC #### [facility] [address] [place] [address] Dr. Asim Golden PLT 203 103/ul Normal 150-450 [facility] Comment on above: Performed By: #### C BC #### [facility] [address] [place] [address] Dr. Asim Golden RBC 4.83 106/ul Normal 4.20-5.40 [facility] Comment on above: Performed By: #### C BC #### [facility] [address] [address] [address] Asim Golden WBC 5.6 103/ul Normal 4.0-11.0 [facility] Comment on above: Performed By: #### C BC #### [facility] [address] [place] [address] Dr. Asim Golden FREE THYROXINE INDEX T7on FTI 3.22 Normal 1.30-4.50 [facility] Comment on above: Performed By: #### C MP, T7, LIPID, TSH #### [facility] [address] [place] [address] Dr. Asim Golden T3U 35.0 % Normal 30.0-39.0 [facility] Comment on above: Performed By: #### C MP, T7, LIPID, TSH #### [facility] [address] [place] [address] Dr. Asim Golden T4 [Mass/Vol] 9.20 ug/dL Normal 4.80-13.90 [facility] Comment on above: Performed By: #### C MP, T7, LIPID, TSH #### [facility] [address] [place] [address] Dr. Asim Golden GLYCOHEMOGLOBIN A1Con 2022 ADA RECOMMENDATION SEE BELOW Normal [facility] Comment on above: Result Comment: ADA RECOMMENDED LIMIT 4.0 - 6.0 ADA THERAPEUTIC TARGET < 7.0 ACTION SUGGESTED > 7.0 Performed By: #### A 1C #### [facility] [address] [place] [address] Dr. Asim Golden Glucose [Mass/Vol] 105 mg/dL Normal [facility] Comment on above: Performed By: #### A 1C #### [facility] [address] [address] [address] Asim Golden HbA1c (Bld) [Mass fraction] 5.3 % Normal 4.5-6.2 [facility] Comment on above: Performed By: #### A 1C #### [facility] [address] [place] [address] Dr. Asim Golden LIPID PROFILEon 02-23-2023 CHOL-HDL RATIO NORM SEE BELOW Normal [facility] Comment on above: Result Comment: 3.3 - 4.4 LOW RISK 4.4 - 7.1 AVERAGE RISK 7.1 - 11.0 MODERATE RISK >11.0 HIGH RISK Performed By: #### C MP, T7, LIPID, TSH #### [facility] [address] [place] [address] Dr. Asim Golden Cholesterol [Mass/Vol] 166 mg/dL Normal <=200 [facility] Comment on above: Performed By: #### C MP, T7, LIPID, TSH #### [facility] [address] [place] [address] Dr. Asim Golden Cholesterol in HDL [Mass/Vol] 58 mg/dL Normal 40-60 [facility] Comment on above: Performed By: #### C MP, T7, LIPID, TSH #### [facility] [address] [place] [address] Dr. Asim Golden Cholesterol in LDL [Mass/Vol] 95.6 mg/dL Normal [facility] Comment on above: Performed By: #### C MP, T7, LIPID, TSH #### [facility] [address] [place] [address] Dr. Asim Golden Cholesterol.total/Cho lesterol in HDL [Mass ratio] 2.9 {ratio} Normal [facility] Comment on above: Performed By: #### C MP, T7, LIPID, TSH #### [facility] [address] [place] [address] Dr. Asim Golden HDL NORMAL > or = 60 mg/dl - LO W CARDIOVASCULAR RISK <40 mg/dl - HIGH CARDIOVASCULAR RISK Normal [facility] Comment on above: Performed By: #### C MP, T7, LIPID, TSH #### [facility] [address] [address] [address] Asim Golden LDL CALC NORMAL SEE BELOW Normal [facility] Comment on above: Result Comment: <100 mg/dl OPTIMAL 100 - 129 mg/dl NEAR OR ABOVE OPTIMAL 130 - 159 mg/dl BORDERLINE HIGH 160 - 189 mg/dl HIGH >190 mg/dl VERY HIGH Performed By: #### C MP, T7, LIPID, TSH #### [facility] [address] [address] [address] Asim Golden Triglyceride [Mass/Vol] 62 mg/dL Normal <=150 [facility] Comment on above: Performed By: #### C MP, T7, LIPID, TSH #### [facility] [address] [address] [address] Asim Golden VLDL CALC 12.4 mg/dL Normal [facility] Comment on above: Performed By: #### C MP, T7, LIPID, TSH #### [facility] [address] [address] [address] Asim Golden PROF 14(COMP METB)on 023 Albumin [Mass/Vol] 4.2 g/dL Normal 3.4-5.0 [facility] Comment on above: Performed By: #### C MP, T7, LIPID, TSH #### [facility] [address] [address] [address] Asim Golden Albumin/Globulin [Mass ratio] 1.1 {ratio} Normal [facility] Comment on above: Performed By: #### C MP, T7, LIPID, TSH #### [facility] [address] [address] [address] Asim Golden ALP [Catalytic activity/Vol] 65 U/L Normal 46-116 [facility] Comment on above: Performed By: #### C MP, T7, LIPID, TSH #### [facility] Laboratory [address] [address] [address] Asim Golden ALT [Catalytic activity/Vol] 38 U/L Normal 14-59 [facility] Comment on above: Performed By: #### C MP, T7, LIPID, TSH #### [facility] [address] [place] [address] Dr. Asim Golden Anion gap [Moles/Vol] 17.1 mmol/L Normal Th [facility] Comment on above: Performed By: #### C MP, T7, LIPID, TSH #### [facility] [address] [address] [address] Asim Golden AST [Catalytic activity/Vol] 22 U/L Normal 15-37 [facility] Comment on above: Performed By: #### C MP, T7, LIPID, TSH #### [facility] [address] [address] [address] Asim Golden Bilirubin [Mass/Vol] 0.5 mg/dL Normal 0.2-1.0 [facility] Comment on above: Performed By: #### C MP, T7, LIPID, TSH #### [facility] [address] [address] [address] Asim Golden Calcium [Mass/Vol] 9.3 mg/dL Normal 8.5-10.1 [facility] Comment on above: Performed By: #### C MP, T7, LIPID, TSH #### [facility] [address] [address] [address] Asim Golden Chloride [Moles/Vol] 106 mmol/L Normal 98-107 [facility] Comment on above: Performed By: #### C MP, T7, LIPID, TSH #### [facility] [address] [place] [address] Dr. Asim Golden CO2 [Moles/Vol] 26.8 mmol/L Normal 21.0-32.0 [facility] Comment on above: Performed By: #### C MP, T7, LIPID, TSH #### [facility] [address] [address] [address] Asim Golden Creatinine [Mass/Vol] 0.95 mg/dL Normal 0.55-1.02 [facility] Comment on above: Performed By: #### C MP, T7, LIPID, TSH #### [facility] [address] [address] [address] Asim Golden EGFR-AF MONGOLIAN >60 Normal >=60 [facility] Comment on above: Performed By: #### C MP, T7, LIPID, TSH #### [facility] [address] [address] [address] Asim Golden EGFR-NON AF MONGOLIAN >60 Normal >=60 [facility] Comment on above: Performed By: #### C MP, T7, LIPID, TSH #### [facility] [address] [address] [address] Asim Golden Globulin (S) [Mass/Vol] 3.7 g/dL Normal [facility] Comment on above: Performed By: #### C MP, T7, LIPID, TSH #### [facility] [address] [place] [address] Dr. Asim Golden Glucose [Mass/Vol] 106 mg/dL Normal 74-106 [facility] Comment on above: Performed By: #### C MP, T7, LIPID, TSH #### [facility] [address] [place] [address] Dr. Asim Golden Potassium [Moles/Vol] 4.8 mmol/L Normal 3.5-5.1 [facility] Comment on above: Performed By: #### C MP, T7, LIPID, TSH #### [facility] [address] [place] [address] Dr. Asim Golden Protein [Mass/Vol] 7.9 g/dL Normal 6.4-8.2 [facility] Comment on above: Performed By: #### C MP, T7, LIPID, TSH #### [facility] [address] [place] [address] Dr. Asim Golden Sodium [Moles/Vol] 145 mmol/L Normal 136-145 [facility] Comment on above: Performed By: #### C MP, T7, LIPID, TSH #### [facility] [address] [place] [address] Dr. Asim Golden Urea nitrogen [Mass/Vol] 15.0 mg/dL Normal 7.0-18.0 [facility] Comment on above: Performed By: #### C MP, T7, LIPID, TSH #### [facility] [address] [place] [address] Dr. Asim Golden Urea nitrogen/Creatinine [Mass ratio] 15.8 mg/mg Normal [facility] Comment on above: Performed By: #### C MP, T7, LIPID, TSH #### [facility] [address] [place], [place] [address] Dr. Asim Golden TSHon 02-23-2023 TSH 0.858 uIU/mL Normal 0.358-3.740 [facility] Comment on above: Performed By: #### C MP, T7, LIPID, TSH #### [facility] [address] [place], [place] [address] Dr. Asim Golden Gynecology Office/Clinic Not zainab 02-17-2023 Gynecology Office/Clinic Note Chief Complaint 6 week medication/symptom check. Restarted oxybutnin 10mg and increased prozac to 30mg. History of Present Illness Pelvic Pain: No Painful Sex: No Abnormal Vaginal Discharge: No Abnormal Vaginal Bleeding: No Vaginal Dryness: No Vaginal Itch: No Vaginal Burning: No Vaginal Odor: No Contraception Type: Tubal ligation Sexually Active: Yes Comments 02/17/23 09:18:00 6 week medication/symptom check. Restarted Oxybutynin 10mg and increased Prozac to 30mg. Patient is doing well. Denies side effects. Has gone from leaking with every void to no leaking at all. Decrease urgency and frequency. Prozac dosing has significant mood improvement. Doing well and requesting to continue all meds. Insurance does not cover [employer] or [email or web address]. Work scheduled is crazy and never knows what shifts she is working. Does not exercise or eat well. Review of Systems Ears, Nose, Throat Congestion: No Vertigo: No Sore throat: No Nasal drainage: No Cardio Respiratory Peripheral edema: No Heart Irregularity: No Chest Pain: No Shortness of Breath: No Gastrointestinal Bloating: No Reflux/heartburn: No Abdominal Pain: No Change in bowel habits: No Physical Exam Vitals & Measurements BP: 140/88 HT: 174 cm WT: 101.6 kg WT: 101.6 kg (Dosing) BMI: 33.56 General: Alert and oriented, well nourished, no acute distress. Lungs: Clear to auscultation and percussion, non-labored respiration. Heart: Normal rate, regular rhythm, no murmur, gallop or edema. Abdomen: Soft, non-tender, non-distended, normal bowel sounds, no masses. Neurologic: Awake, alert, and oriented X3, CN II-XII intact. Psychiatric: Cooperative, appropriate mood and affect. External Genitalia: Normal urethral meatus, no lesions, vulvar skin intact. Genitourinary: Atrophic vaginal mucosa, no lesions or abnormal discharge, cervix surgical absent, no bleeding. Gd 2 cystocele gd 1 rectocele. Bimanual exam: Absent uterus-s/p TLH BSO. Additional Vitals BP Position/Location: Sitting, Right arm Assessment/Plan 1. Medication management Doing well on increase dose of Prozac and Oxybutynin. Bladder diary with significant improvement in OAB symptoms and not leaking anymore. Will call if she has increase symptoms for increase dosing. Discussed pelvic organ prolapse-gd 2 cystocele and rectocele. Discussed symptoms. Discussed options for treatment including watchful waiting, kegel exercises, pessary, physical therapy, and surgery. She declines any treatment at this time. Reviewed diet/exercise recs. She will call if medications approved with insurance. F/u as scheduled for her annual exam and call with any questions/problems prior to next appt. 2. Incontinence of urine in female 3. S/P total hysterectomy and bilateral salpingo-oophorectomy 4. Cystocele, midline 5. Rectocele Medical Decision Making Chronic conditions NOT treated during this visit that affected my overall medical decision making: none Treatment plans discussed but not opted for at this time: see above Prescribed medication that requires intensive monitoring for toxicity: no I have reviewed the patient?s medication list for medication interactions/contrain dications and/or for upcoming procedures: no Time Spent with the Patient I have personally spent 30 minutes on this date, directly related to today's patient visit, including pre and post visit work, for this date of service. Time listed does not include time spent on separately billable services. Problem List/Past Medical History Ongoing Arthritis Depression GERD (gastroesophageal reflux disease) Incontinence of urine in female Medication management S/P total hysterectomy and bilateral salpingo-oophorectomy Historical No qualifying data Procedure/Surgical History Colonoscopy lesion removed from R middle finger lumpectomy right breast ovarian cyst removed tonsillectomy tubal ligation total lap hysterectomy bso, Morales, D&C , cystoscopy. (05/10/2015) [facility] Procedure Robotic Si (08/17/2017) Repair Posterior Vagina (08/17/2017) Medications FLUoxetine 20 mg oral tablet, 20 mg= 1 tabs, Oral, Daily, 4 refills ibuprofen 800 mg oral tablet, 800 mg= 1 tabs, Oral, q8hr, 1 refills lansoprazole 30 mg oral delayed release capsule, 30 mg= 1 caps, Oral, qAM meloxicam 15 mg oral tablet, 15 mg= 1 tabs, Oral, Daily oxybutynin 10 mg/24 hr oral tablet, extended release, 10 mg= 1 tabs, Oral, Daily, 3 refills PROzac 10 mg oral capsule, 10 mg= 1 caps, Oral, Daily, 3 refills simvastatin 20 mg oral tablet, 20 mg= 1 tabs, Oral, HS (at bedtime) Allergies No Known Allergies Social History Alcohol Current, Beer, 1-2 times per week, Previous treatment: None. 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 Exercise Exercise duration: 0. Home/Environment Lives with Spouse, ADULT DAUGHTER & GRANDCHILD. Living situation: Home/Independent. , 2 DOGS Nutrition/H (more content not included)... Normal [facility] Gynecology Office/Clinic Not zainab 01-05-2023 Gynecology Office/Clinic Note Chief Complaint 57 y/o, , , Urinary Concerns, Medication isn't helping History of Present Illness Pelvic Pain: No Painful Sex: No Abnormal Vaginal Discharge: No Abnormal Vaginal Bleeding: No Vaginal Dryness: No Vaginal Itch: No Vaginal Burning: No Vaginal Odor: No Hot Flashes: No Night Sweats: No Breast Lump: No Breast Pain: No Contraception Type: Tubal ligation Menstrual Periods: No Reason for No Menstrual Periods: PATRICIA Sexually Active: Yes Comments 01/05/23 09:03:00 57 y/o, , , Urinary Concerns, Vesicare isn?t helping as much as it was initially. She leaks 5x during the day-has to change pads 3-5x daily. Does leak at night as well-changing pads 2x nightly. She can make it to bathroom occasionally. Most times stands up and leaks as soon as she stands up. No increase frequency/urgency. No UTI symptoms. +constipation started Miralax last week. OAB Pathway 1. Consult with provider Reviewed symptoms with provider-01/05/23 Discussed baseline bladder diary-sheets given to fill out Diagnostic test if needed-may benefit from Urodynamics in the future Reviewed other treatment options with provider-01/05/23 2. Initial treatment Lifestyle changes-she will decrease her caffeine-drinks multiple green teas per day and coffee Bladder training exercises-may benefit from PFPT Fluid/diet changes-01/05/23 3. Medications Medication #1 Oxybutynin Start date 2020 Length of treatment 2 years-only trialed 10mg dosing for a few weeks-wants to re-try as she thought that helped better Medication #2 Vesicare Start date 08/06 Length of treatment 4 months 4. Follow-up/review symptoms 5. Advanced therapies Sacral neuromodulation Percutaneous tibial nerve stimulation Injections Review of Systems Ears, Nose, Throat Congestion: No Vertigo: No Sore throat: No Nasal drainage: No Cardio Respiratory Peripheral edema: No Heart Irregularity: No Chest Pain: No Shortness of Breath: No Gastrointestinal Bloating: No Reflux/heartburn: No Abdominal Pain: No Change in bowel habits: No Urinary Urinary Incontinence: Yes Urinary frequency: Yes Nocturia: Yes Urgency: Yes Painful urination: No Physical Exam Vitals & Measurements BP: 118/82 HT: 178 cm WT: 104 kg WT: 104 kg (Dosing) BMI: 32.82 General: Alert and oriented, well nourished, no acute distress. Lungs: Clear to auscultation and percussion, non-labored respiration. Heart: Normal rate, regular rhythm, no murmur, gallop or edema. Abdomen: Soft, non-tender, non-distended, normal bowel sounds, no masses. Neurologic: Awake, alert, and oriented X3, CN II-XII intact. Psychiatric: Cooperative, appropriate mood and affect. Additional Vitals BP Position/Location: Sitting, Left arm Assessment/Plan 1. Incontinence of urine in female Reviewed with pt both stress and urge incontinence symptoms and treatment options including behavioral modifications, Kegels, medications, PTNM, Botox and InterStim. At this time, she opted to try medications. Discussed risks/benefits/side effects of medication and she wished to re-try Oxybutynin 10mg dosing. She will f/u in 4 weeks for medication check and will review bladder diary and exam. She will call with any questions/problems prior to next appt. Discussed trial of SSRI for her anxiety/depression/ir ritability. Reviewed risks/benefits/side effects and she will increase Prozac to 30mg daily. Discussed need to wean off medication and not stop cold turkey due to possible withdrawal symptoms. Will f/u for symptom check. Info given on Saxenda/Wegovy and she will see if insurance covers. 2. S/P total hysterectomy and bilateral salpingo-oophorectomy Orders: FLUoxetine, 1 caps, Oral, Daily, take in addition to 20mg for a total of 30mg daily, # 90 caps, 3 Refill(s), Pharmacy: [facility] FLUoxetine, 1 tabs, Oral, Daily, take in addition to 10 for 30mg total, # 90 tabs, 4 Refill(s), Pharmacy: [facility] oxybutynin, 1 tabs, Oral, Daily, # 30 tabs, 11 Refill(s), Pharmacy: [facility] Medical Decision Making Chronic conditions NOT treated during this visit that affected my overall medical decision making: constipation Treatment plans discussed but not opted for at this time: see above Prescribed medication that requires intensive monitoring for toxicity: no I have reviewed the patient?s medication list for medication interactions/contrain dications and/or for upcoming procedures: no Time Spent with the Patient I have personally spent 35 minutes on this date, directly related to today's patient visit, including pre and post visit work, for this date of service. Time listed does not include time spent on separately billable services. Problem List/Past Medical History Ongoing Arthritis Depression Encounter for gynecological examination (general) (routine) without abnormal findings GERD (gastroesophageal reflux disease) Incontin (more content not included)... Normal [facility] Coding Summary.on 12-07-2019 Coding Summary. CODING DATE: 12/07/2019 FINAL [facility] STATUS: Home (Routine DC) PAYOR: Dennis APC DESCRIPTION 5671 Level 1 Pathology ADMIT DX: REASON FOR VISIT DX: B07.9 Viral wart, unspecified L91.8 Other hypertrophic disorders of the skin FINAL DX: PRINCIPAL: C44.319 Basal cell carcinoma of skin of other parts of face SECONDARY: PYMT PROC APC STAT DESCRIPTION DOCTOR NAME DATE NOTE: The code number assigned matches the documented diagnosis and / or procedure in the patient's chart. However, the narrative phrase printed from the coding software may appear abbreviated, or result in slightly different terminology. Coded By: Kacie Arzate Date Saved: 12/07/2019 10:27 am [facility] Vital Signs Date Time Vital Sign Value Performing Clinician Jerardo ochoa 11-29-2023 09:08-0500 Diastolic blood pressure 76 mm[Hg] MD Alexandra Rodriguez Work Phone: [facility] 11-29-2023 09:08-0500 Heart rate 68 /min MD Alexandra Rodriguez Work Phone: [facility] 11-29-2023 09:08-0500 Respiratory rate 14 /min MD Alexandra Rodriguez Work Phone: [facility] 11-29-2023 09:08-0500 SaO2% (BldA) [Mass fraction] 98 % MD Alexandra Rodriguez Work Phone: [facility] 11-29-2023 09:08-0500 Systolic blood pressure 112 mm[Hg] MD Alexandra Rodriguez Work Phone: [facility] 11-29-2023 07:17-0500 Body height 172.72 cm MD Alexandra Rodriguez Work Phone: [facility] 11-29-2023 07:17-0500 Body weight 95.25 kg MD Alexandra Rodriguez Work Phone: [facility] 08-16-2023 09:46-0400 Diastolic blood pressure 67 mm[Hg] MD Alexandra Rodriguez Work Phone: [facility] 08-16-2023 09:46-0400 Heart rate 55 /min MD Alexandra Rodriguez Work Phone: [facility] 08-16-2023 09:46-0400 Respiratory rate 16 /min MD Alexandra Rodriguez Work Phone: [facility] 08-16-2023 09:46-0400 SaO2% (BldA) [Mass fraction] 97 % MD Alexandra Rodriguez Work Phone: [facility] 08-16-2023 09:46-0400 Systolic blood pressure 104 mm[Hg] MD Alexandra Rodriguez Work Phone: [facility] 08-16-2023 07:17-0400 Body height 170.18 cm MD Alexandra Rodriguez Work Phone: [facility] 08-16-2023 07:17-0400 Body temperature 97.9 [degF] MD Alexandra Rodriguez Work Phone: [facility] 08-16-2023 07:17-0400 Body weight 99.79 kg MD Alexandra Rodriguez Work Phone: [facility] Encounters Encounter Date Encounter Type Care Provider Facility Start: 11-29-2023 End: 11-29-2023 ambulatory Alexandra Rodriguez Facility:[facility] Start: 11-29-2023 End: 11-29-2023 Admission to same day surgery center MD Alexandra Rodriguez Work Phone: [facility] Work Phone: Start: 11-29-2023 End: 11-29-2023 ambulatory MD Alexandra Rodriguez Work Phone: [facility] Work Phone: Start: 11-01-2023 End: 11-02-2023 ambulatory Luci Madriditis Facility:[facility] Start: 09-20-2023 End: 09-21-2023 ambulatory Andchristianous Fletcherytautas [facility]cy[facility] Facility:[facility] Start: 08-30-2023 End: 08-31-2023 ambulatory Luci Bynumytautevelia Madriditis Facility:[facility] Start: 08-16-2023 End: 08-16-2023 Admission to same day surgery center MD Alexandra Rodriguez Work Phone: [facility] Work Phone: Start: 08-16-2023 End: 08-16-2023 ambulatory MD Alexandra Rodriguez Work Phone: [facility] Work Phone: Start: 08-02-2023 End: 08-03-2023 ambulatory Luci Murguia MD Facility:[facility] Start: 06-21-2023 End: 06-22-2023 ambulatory Alexandra Rodriguez MD Facility:[facility] Start: 05-10-2023 End: 05-11-2023 ambulatory Alexandra Rodriguez MD Facility:[facility] Start: 03-01-2023 Encounter for genera l adult medical examination without abnormal findings DR ALEXANDRA RODRIGUEZ . [facility] Start: 02-23-2023 End: 02-24-[address] ALEXANDRA RODRIGUEZ . Facility: Start: 02-23-2023 End: 02-24-2023 Encounter for general adult medical examination without abnormal findings DR ALEXANDRA RODRIGUEZ . Facility: Start: 02-17-2023 End: 02-18-2023 ambulatory Alexandra Rodriguez MD [facility] Start: 01-05-2023 End: 01-06-2023 ambulatory Alexandra Rodriguez MD Facility:[facility] Procedures Date Procedure Procedure Detail Performing Clinician Start: 11-29-2023 Screening colonoscopy Kae Rodriguez Work Phone: Start: 08-16-2023 Screening colonoscopy Kae Radha Rodriguez Work Phone: Plan of Treatment Date Care Activity Detail Author Start: 11-29-2023 [facility] Start: 08-16-2023 [facility] Patient Education [facility] Work Phone: Payers Date Payer Category Payer Self-pay [id number] 2022 Unknown 1965 Unknown [id number] 2.16.84 [id number] 1965 Unknown [id number] 2.16. [id number] 1967 Unknown [id number] 2.16. [id number] 1967 Unknown [id number] 2.16. [id number] 1967 Unknown [id number] 2.16. [id number] 1967 Unknown [id number] 2.16. [id number] 1967 Unknown [id number] 2.16. [id number] 1967 Unknown [id number] 2.16. [id number] 1967 Unknown [id number] 2.16. [id number] 1967 Unknown [id number] 2.16. [id number] 1967 Unknown [id number] 2.16. [id number] 1959 Unknown [id number] Unknown [id number] 2.16.8 [id number] Unknown [id number] 2.16.8 [id number] Social History Date Type Detail Facility Start: 08-16-2023 End: 11-29-2023 Tobacco smoking status SDIS Smoker (finding) [facility] Start: 1965 Sex Assigned At Female F [facility] Goals Date Patient Goal Desired Activity /State Procedure note 11-29-2023 Note Date & Type Note Facility 11-29-2023 Procedure note [facility] Procedure note 08-16-2023 Note Date & Type Note Facility 08-16-2023 Procedure note [facility] Clinical Note 05-13-2023 Note Date & Type Note Facility 05-13-2023 Note BREAST IMAGING CONSU LTATION: 05/10/2023 CLINICAL: Screening. Comparison is made to exams dated: 05/04/2022 mammogram, 04/28/2021 mammogram, 05/07/2020 ultrasound, 05/07/2020 ultrasound, and 04/24/2020 mammogram - [facility]. The tissue of both breasts is predominantly fatty. Current study was also evaluated with a Computer Aided Detection (CAD) system. There is a benign cyst in the right breast. There also is a benign nodule in the left breast. Additionally, there are benign nodules in the right breast. Additionally, there also are benign scattered calcifications in the right breast. No significant masses, calcifications, or other findings are seen in either breast. There has been no significant interval change. IMPRESSION: BENIGN There is no mammographic evidence of malignancy. A 1 year screening mammogram is recommended. (05/10/2024) The patient was notified of the results. Investigation of a clinically suspicious lesion should not be precluded by the lack of specific imaging findings. 10-15% of breast cancers may not be detected on mammograms. The [employer] supports annual screening mammography starting at age 40. Manju Sanchez MD [facility]:05/13/2023 14:20:14 Attending Technologist(s): RT Stephanie(R)(M), [facility] Strategy Planning Consultant(s): RT Arpita(R)(M), [facility] letter sent: New Mammo Normal B1/2 Mammogram BI-RADS: 2 Benign Final Dictated by: Manju Sanchez MD Signed by: Manju Sanchez MD Signed (Electronic Signature): 05/13/2023 2:20 pm (If Report Is Signed, Electronically Signed in Other Vendor System) [facility] Evaluation note Note Date & Type Note Facility Evaluation note No assessment information availa [facility] Work Phone: History and physical note Note Date & Type Note Facility History and physical note Note Date/Time August 16, 2023 8: 23am [facility] [address] [place] [address] Gastroenterology H&P Signed Patient: Mirlande Rojas MR#: [id number] : 1965 Acct:[id number] Age/Sex: 57 / F Adm Date: 3 Loc: Room: Type: [facility] Attending Dr: Jordana uRiz MD Copies to: MD Jordana Zayas MD~ Date of Service: 08/16/2023 HISTORY & PHYSICAL: Patient's history with special attention to the cardiovascular, pulmonary systems and the current problem was reviewed with the patient immediately prior to the procedure. Present medications and doses reviewed in the EMR. Allergies and pertinent laboratory tests were also reviewedat this time in the EMR. The physical examination, as below, was then performed. Indication, assessment and HPI: 57-year-old female with family history of colon cancer (brother ) and history of colonic polyps here for surveillance colonoscopy Family history of GI malignancy? Yes PHYSICAL EXAMINATION Mouth and Pharynx : Moist mucus membranes, normal dentition Cardiac: Regular rate, regular rhythm Pulmonary: Clear to auscultation bilaterally, no wheezing Neurological: Alert and oriented x3, no focal deficits noted Abdomen: Abdomen soft, non-tender REVIEW OF SYSTEMS Constitutional: Denies malaise, fevers Cardiovascular: Denies chest pain, palpitations Respiratory: Denies shortness of breath, wheezing Gastrointestinal: Per HPI Genitourinary: Denies dysuria, polyuria Musculoskeletal: Denies joint swelling, joint stiffness Neurological: Denies numbness, tingling Integumentary: Denies rashes, skin lesions Endocrine: Denies fatigue, weight loss Written informed consent obtained from the patient. Risks (including but not limited to perforation, infection, bloating, bleeding, need for emergent surgeryand loss of life), benefits and alternatives explained and questions answered. The patient verbalized understanding. Based on history patient is an appropriate candidate for the procedure. Jordana Ruiz M.D. Documented By: Jordana Ruiz MD 08/16/23821 Signed By: <Electronically signed by Jordana Ruiz MD> 08/16/23822 [facility] Work Phone: History and physical note Note Date & Type Note Facility History and physical note Note Date/Time November 29, 2023 8:05am [facility] [address] [place] [address] Gastroenterology H&P Signed Patient: Mirlande Rojas MR#: [id number] : 1965 Acct:[id number] Age/Sex: 58 / F Adm Date: 4 Loc: Room: Type: [facility] Attending Dr: Jordana Ruiz MD Copies to: MD Jordana Zayas MD~ Date of Service: 11/29/2023 HISTORY & PHYSICAL: Patient's history with special attention to the cardiovascular, pulmonary systems and the current problem was reviewed with the patient immediately prior to the procedure. Present medications and doses reviewed in the EMR. Allergies and pertinent laboratory tests were also reviewedat this time in the EMR. The physical examination, as below, was then performed. Indication, assessment and HPI: 58-year-old female with family history of colon cancer (brother ) and history of colonic polyps here for surveillance colonoscopy Family history of GI malignancy? Yes PHYSICAL EXAMINATION Mouth and Pharynx : Moist mucus membranes, normal dentition Cardiac: Regular rate, regular rhythm Pulmonary: Clear to auscultation bilaterally, no wheezing Neurological: Alert and oriented x3, no focal deficits noted Abdomen: Abdomen soft, non-tender REVIEW OF SYSTEMS Constitutional: Denies malaise, fevers Cardiovascular: Denies chest pain, palpitations Respiratory: Denies shortness of breath, wheezing Gastrointestinal: Per HPI Genitourinary: Denies dysuria, polyuria Musculoskeletal: Denies joint swelling, joint stiffness Neurological: Denies numbness, tingling Integumentary: Denies rashes, skin lesions Endocrine: Denies fatigue, weight loss Written informed consent obtained from the patient. Risks (including but not limited to perforation, infection, bloating, bleeding, need for emergent surgeryand loss of life), benefits and alternatives explained and questions answered. The patient verbalized understanding. Based on history patient is an appropriate candidate for the procedure. Jordana Ruiz M.D. Documented By: Jordana Ruiz MD 11/29/23804 Signed By: <Electronically signed by Jordana Ruiz MD> 11/29/23831 [facility] Work Phone: Hospital Discharge instructions Note Date & Type Note Facility Hospital Discharge instructions Additional Instructions DISCHARGE INSTRUCTIONS FOR COLONOSCOPY WHAT TO EXPECT: - You may feel full, gassy or cramping after your procedure. In some cases, this may be from a few hours to a day. Walking may help relieve the discomfort. - If you have polyp(s) removed you may note some minor bloody discharge after your first bowel movements. - You should begin to recover from anesthesia within 1 hour of the procedure, however may feel groggy for the next 24 hours. DO's AND DON'Ts: - Call your doctor right away if you have a hard abdomen, severe pain, are passing lots of bright red blood or clots. - Call your doctor if you develop any rashes, hives or difficulty breathing. - Let your doctor know if you have not had a bowel movement by 3 days after your procedure. - If you take 81 mg aspirin for your heart it is safe to resume this medication. - If you take other blood thinner medications your doctor will instruct you when these can safely be resumed. - Do NOT drive for 24 hours. - Do NOT operate machinery such as power tools, US[employer] mowers, snow blowers, sewing machines, etc. for 24 hours. - Avoid alcoholic beverages and drugs for allergies, nerves, or sleep. - Do NOT stay alone. Do NOT leave your child unattended. - Do NOT make important personal or business decisions or sign any legal documents. - Eat solid foods and drink liquids in smaller amounts than usual until normal appetite returns. If you should experience an upset stomach, liquids high in sugar content (soda, Nimesh-Aid, non-acid juices) are recommended. - You can resume normal activities tomorrow. FOLLOW UP & RECOMMENDATIONS: -Repeat colonoscopy next available due to inadequate prep -Follow up pathology -Notify the doctor if you have any problems. -Follow up with PCP. -Office number [phone]. [facility] Work Phone: Hospital Discharge instructions Note Date & Type Note Facility Hospital Discharge instructions Additional Instructions DISCHARGE INSTRUCTIONS FOR COLONOSCOPY WHAT TO EXPECT: - You may feel full, gassy or cramping after your procedure. In some cases, this may be from a few hours to a day. Walking may help relieve the discomfort. - If you have polyp(s) removed you may note some minor bloody discharge after your first bowel movements. - You should begin to recover from anesthesia within 1 hour of the procedure, however may feel groggy for the next 24 hours. DO's AND DON'Ts: - Call your doctor right away if you have a hard abdomen, severe pain, are passing lots of bright red blood or clots. - Call your doctor if you develop any rashes, hives or difficulty breathing. - Let your doctor know if you have not had a bowel movement by 3 days after your procedure. - If you take 81 mg aspirin for your heart it is safe to resume this medication. - If you take other blood thinner medications your doctor will instruct you when these can safely be resumed. - Do NOT drive for 24 hours. - Do NOT operate machinery such as power tools, lawn mowers, snow blowers, sewing machines, etc. for 24 hours. - Avoid alcoholic beverages and drugs for allergies, nerves, or sleep. - Do NOT stay alone. Do NOT leave your child unattended. - Do NOT make important personal or business decisions or sign any legal documents. - Eat solid foods and drink liquids in smaller amounts than usual until normal appetite returns. If you should experience an upset stomach, liquids high in sugar content (soda, Nimesh-Aid, non-acid juices) are recommended. - You can resume normal activities tomorrow. FOLLOW UP & RECOMMENDATIONS: -Notify the doctor if you have any problems. -Repeat colonoscopy in 5 years. -Follow up with PCP. -Office number [phone]. [facility] Work Phone: Summary Purpose Family History No Family History Records Found Relationship Condition Age at Onset Recorded Date/T rodriguez father Malignant neoplasm of prostate Unknown brother Malignant neoplasm of prostate Unknown brother Malignant neoplasm of colon Unknown Hypertension Unknown Not Specified Hypertension Unknown brother Hypertension Unknown sister Hypertension Unknown Advance Directives No Advanced Directives Records Found Advance Directive Response Recorded Date/ Time Advance Directives No July 11:16am Advance Directive Response Recorded Date/ Time Advance Directives No July 10:16am Chief Complaint and Reason for Visit Chief Complaint Screening Additional Source Comments INFORMATION SOURCE (unrecogn ized section and content) DATE CREATED AUTHOR [facility]07/2019 [facility] DATE CREATED AUTHOR AUTHOR'S ORGANIZ ATION 03/01/2023 [facility] DATE CREATED AUTHOR AUTHOR'S ORGANIZ ATION 11/05/2023 [facility] DATE CREATED AUTHOR AUTHOR'S ADIS ATION 12/01/2023 [facility] Care Teams (unrecognized sec tion and content) Team Status: Active Member Role Status Dates Alexandra Rodriguez MD Primary Care Provider Active Team Status: Inactive Member Role Status Dates Alexandra Rodriguez MD Primary Care Provider Active Jordana Ruiz MD Attending Provider Active FOR RECORDS PERTAINING TO PATIENTS WHO ARE OR HAVE BEEN ENROLLED IN A CHEMICAL DEPENDENCY/SUBSTANCEABUSE PROGRAM, SOME INFORMATION MAY BE OMITTED. This clinical summary was aggregated from multiple sources. Caution should be exercised in using it in the provision of clinical care. This summary normalizes information from multiple sources, and as a consequence, information in this document may materially change the coding, format and clinical context of patient data. In addition, data may be omitted in some cases. CLINICAL DECISIONS SHOULD BE BASED ON THE PRIMARY CLINICAL RECORDS. [facility]. provides no warranty or guarantee of the accuracy or completeness of information in this document.
[2023-12-06 07:17] VITALS: BP 122/84; PULSE 68; RESP 16; TEMP 36.5; O2SAT 98
[2023-12-06] MEDS: 0.9 % SODIUM CHLORIDE 500 ML IV (07:25)
--- NOTE | 2023-12-06 08:20 | P.ON_ITS ---
Date of procedure: 12/06/23 Pre-op diagnosis: Lumbar spondylosis Post-op diagnosis: same as pre-op Procedure: Procedure: Left L4-5, L5-S1 radiofrequency ablation Medications: Bupivacaine 0.25% 3cc, lidocaine 2% 3cc, kenalog 40mg The patient was seen and examined in the preoperative holding area.? The site was marked.? Written informed consent was obtained and placed on the chart.? The patient was brought to the medical procedure unit and placed in the prone position.? A timeout was completed verifying correct patient, procedure, positioning, and special requirements.? The skin overlying the target points, the designated medial branch, were prepped and draped in the usual sterile fashion.? The target point was achieved with a 20-gauge 15 cm with a 10 mm curved active tip radiofrequency cannula under direct fluoroscopic visualization.? The needle was inserted at level L4 on the left side. Needle tip position was confirmed with lateral fluoroscopic position.? Motor stimulation was carried out at 2 Hz up to 5 volts with the absence of extremity activity.? This was repeated at level L5, S1 on left side.?? Sensory stimulation was carried out.? Concordant pain was realized at the above- mentioned sites.? Then radiofrequency lesioning was carried out times 90 seconds at 80 degrees times 2 lesions at each level.? The radiofrequency probe was removed prior to cannula removal.? The above-mentioned injectate was placed in 1 mL increments.? The needle was removed.? Insertion sites were covered.? The patient was taken to the postoperative recovery area and monitored for an appropriate length of time before being found suitable for discharge in the company of a responsible adult. Anesthesia: Moderate Sedation Surgeon: Luci Murguia Pathology: none sent Condition: stable Disposition: no change
[2023-12-06] MEDS: TRIAMCINOLONE ACETONIDE 40 MG/ML VIAL INJ (08:21)
[2023-12-06] MEDS: LIDOCAINE HCL 2% 400 MG/20 ML MDV 7 ML INJ (08:21)
[2023-12-06] MEDS: BUPIVACAINE HCL 0.25% PF 25 MG/10 ML VIAL 2 ML INJ (08:21)
[2023-12-06 08:22] VITALS: BP 100/78; PULSE 70; RESP 16; TEMP 36.8; O2SAT 93
[2023-12-06 08:28] VITALS: BP 108/78; PULSE 71; RESP 18; O2SAT 96
== END 2023-12-06 08:41 | disposition home or self-care (01) ==
PROVIDERS: PCP Family Medicine; Visit Provider Anesthesiology
PROC: (CPT 1992; principal; 2023-12-06 08:00)
DX: M47.816 Spondylosis without myelopathy or radiculopathy, lumbar region (principal)
CPT/HCPCS: 64635; 64636; J0665; J2250; J2704; J3301

== ENCOUNTER 2024-05-15 11:18 | Outpatient (OUT) | payer BC, SELFPAY ==
[2024-05-15 11:36] LABS: Basophils Absolute Auto 0.1 10^3/uL (0.0-0.1); Eosinophils Absolute Auto 0.1 10^3/uL (0.0-0.7); Eosinophils Percent Auto 1.7 % (0.9-7.0); Hematocrit 44.1 % (36.0-48.0); Hemoglobin 14.7 g/dL (12.0-16.0); Immature Granulocytes Abs Auto 0.09 10^3/uL (0.00-0.03); Immature Granulocytes Pct Auto 1.3 % (0.0-0.5); Lymphocytes Absolute Auto 2.7 10^3/uL (1.2-3.8); Lymphocytes Percent Auto 37.3 % (20.5-60.0); Mean Corpuscular HGB Conc 33.3 g/dL (29.9-35.2); Mean Corpuscular Hemoglobin 29.8 pg (26.7-34.0); Mean Corpuscular Volume 89.3 fL (81.0-99.0); Mean Platelet Volume 10.2 fL (9.5-13.5); Monocytes Absolute Auto 0.7 10^3/uL (0.3-0.8); Monocytes Percent Auto 10.2 % (1.7-12.0); Neutrophils Absolute Auto 3.5 10^3/uL (1.4-6.5); Neutrophils Percent Auto 48.5 % (43.0-75.0); Platelet Count 235 10^3/uL (150-450); Red Blood Count 4.94 10^6/uL (4.20-5.40); Red Cell Distribution Width 12.4 % (11.0-15.0); White Blood Count 7.1 10^3/uL (4.0-11.0)
--- OUTSIDE RECORDS SUMMARY | 2024-05-15 11:41 | XMS_ITS | CCD ---
Author Organization [facility] Care Team Providers Care Shelving Supervisor Name Role Phone KARINA ., DR MORRIS Admitting Unavailable KARINA ., DR MORRIS Attending Unavailable KARINA ., DR MORRIS Primary Care Unavailable KARINA ., DR MORRIS Consulting Unavailable MD Alexandra Rodriguez Primary Care Provider [phone] MD Sara Imad Attending Provider [phone] MD Alexandra Rodriguez Primary Care Provider [phone] MD Sara Imad Attending Provider [phone] Alexandra Rodriguez Primary Care Unavailable Asaad, Imad Admitting Unavailable Asaad, Imad Attending Alexandra Ortega Primary Care Unavailable Asaad, Imad Admitting Unavailable Asaad, Imad Attending Unavailable Alexandra Rodriguez MD [facility] Unavaila ble Colleen THOMAS, Yanira Nick Attending Adina Alexandra Brunson MD [facility] Unavaila ble Colleen THOMAS, Yanira Nick Attending Adina Alexandra Brunson MD [facility] UnavailAlexandra Gray MD Attending Unavaila rell Rodriguez MD, Alexandra Suarez Admitting Unavaila Alexandra Arthur MD [facility] Unavaila ble Blade AVALOS, Luci Kulkarni Attending Unavailable Blade AVALOS, Luci Kulkarni Attending Unavailable Alexandra Rodriguez MD [facility] Unavaila ble Blade AVALOS, Luci Kulkarni Attending Unavailable Alexandra Rodriguez MD [facility] Unavaila rell Murguia MD, Luci Kulkarni Attending Unavailable Alexandra Rodriguez MD [facility] Unavaila rell Rodriguez MD, Alexandra [facility] Unavaila ble Colleen THOMAS, Yanira Nick Attending Adina Rodriguez MD, Alexandra Suarez [facility] Unavailveronica Murguia MD, Luci Kulkarni Attending Felix Rodriguez MD, Alex[facility] Mac[facility], Yanira Nick Attending Adina manzano Medications Current Medications Medication Drug Class(es) Dates [...] Problems Problem Classification Problem Date Documented Da dinh Episodic/Chronic Malaise and fatigue (1 source) Other [...] Results Test Name Value Interpretation Reference Range Facil imanioliverio Cristino 11-29-2023 L Specimen: [id number] Received: 11/29/23 Status: SERGO Cooleyjose Num: [id number] Spec Type: Surgical Subm Dr: Jordana Ruiz MD Tissues: A Colon Biopsy (RECTAL POLYP) Procedures: HE/2, Gross/Micro L4 Age/ Patient Sex Location Account Attending Physician Mirlande Rojas Kae 58/F [id number] Jordana Ruiz MD SPEC NUM: [id number] RECD: 11/29/23 STATUS: SERGO MARTINEZ NUM: [id number] JUSTEN: 11/29/23 [facility] DR: Jordana Ruiz MD ENTERED: 11/29/23 [facility] DR: MECHELLE TYPE: Surgical DEPT: S ORDERED: [...] microscopic examination confirms the diagnosis. CPT Codes 67885 Specimen: [id number] Received: 11/29/23 Status: SERGO Martinez Num: [id number] Spec Type: Surgical Subm Dr: Jordana Ruiz MD Tissues: A Colon Biopsy (RECTAL POLYP) Procedures: MEERA/Chad Gross/Micro L4 Patient: CrystalMirlande M [id number] (Continued) Signed (signature on file) Samira Elena MD 11/30/23922 [facility] Cristino 08-16-2023 L Specimen: [id number] Received: 08/16/23 Status: SERGO Martinez Num: [id number] Spec Type: Surgical Subm Dr: Jordana Ruiz MD Tissues: A Colon Biopsy (ASCENDING POLYP) Procedures: MEERA/Anna Gross/Micro L4 Age/ Patient Sex Location Account Attending Physician Mirlande Rojas 57/F [id number] Jordana Ruiz MD SPEC NUM: [id number] RECD: 08/16/23 STATUS: SERGO MARTINEZ NUM: [id number] JUSTEN: 08/16/23 [facility] DR: Jordana Ruiz MD ENTERED: 08/16/23 [facility] DR: MECHELLE TYPE: Surgical DEPT: S ORDERED: [...] microscopic examination confirms the diagnosis. CPT Codes 51048 Specimen: [id number] Received: 08/16/23 Status: SERGO Coloeyjose Num: [id number] Spec Type: Surgical Subm Dr: Jordana Ruiz MD Tissues: A Colon Biopsy (ASCENDING POLYP) Procedures: MEERA/Anna, Gross/Aviva L4 Patient: Mirlande Rojas [id number] (Continued) Signed (signature on file) Krystal Golden MD 08/17/23 8318 [facility] MRI Spine Lumbar w/o Contras ton [...] disc bulge. Shallow left foraminal disc protrusion. Rzto-aa-oupgkdaj left foraminal narrowing. Otherwise normal. L3-L4: Minimal facet arthropathy. Shallow left foraminal disc protrusion with minimal endplate spurring causes mild left foraminal narrowing. Minimal right foraminal narrowing. No spinal canal narrowing. L4-L5: Nyvl-ii-ikvsdcmi facet arthropathy. Diffuse disc bulge. Mild left foraminal narrowing. Mild right foraminal narrowing. No significant spinal canal narrowing. L5-S1: Rkzw-ev-nakhfunp facet arthropathy. No significant spinal canal or [...] Electronically Signed in Other Vendor System) Normal [facility] Gynecology Office/Clinic Not zainab 05-10-2023 Gynecology [...] requesting to continue. 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 Not able to exercise regularly. No meds covered by [employer]. Last pap: h/o TLH/BSO. Mammogram: 05/04/22 Benign, fatty tissue. Colonoscopy: 2016 in [place], [place]-polyps, Q 5 yrs. Bone Density: 04/24/20 [...] Ideation: No Homicidal Ideation: No Depression: No Hematologic/Lymphati c Lymphadenopathy: No Thromboembolism: No Bruising: No Bleeding [...] examination Annual exam 1. Continue with breast self-exam/mammogram/ colonoscopy screening 2. Maintain a low-fat, low sugar [...] will [facility] day supply to [facility], if no improvement will try alternate medication and fu 4 weeks after. F/u 1 year for annual exam and she will call with any questions/problems prior to next appt. 2. Cystocele, midline 3. Rectocele 4. S/P total hysterectomy and bilateral salpingo-oophorectom y Orders: FLUoxetine, 1 tabs, Oral, Daily, take in addition to 10 for 30mg total, # 90 tabs, 4 Refill(s), Pharmacy: [facility] FLUoxetine, 1 caps, Oral, Daily, take in addition to 20mg for a total of 30mg daily, # 90 caps, 3 Refill(s), Pharmacy: [facility] oxybutynin, 1 tabs, Oral, Daily, # 30 tabs, 2 Refill(s), Pharmacy: [facility] Bone Density (2 Areas) Medical Decision Making Chronic conditions NOT treated during this visit that affected my overall medical decision making: obesity, HTN Treatment plans discussed but not opted for at this time: see above Prescribed medication that requires intensive mon (more content not included)... Normal [facility] CBC AUTO DIFFon 02-23-2023 BASO # 0.1 103/ul Normal 0.0-0.1 [facility] Comment on above: Performed By: #### C BC #### [facility] [address] [place] [address] Dr. Asim Golden Basophils/100 WBC (Bld) 0.9 % Normal 0.2-2.0 [facility] Comment on above: Performed By: #### C BC #### [facility] [address] [place] [address] Dr. Asim Golden EO # 0.2 103/ul Normal 0.0-0.7 [facility] Comment on above: Performed By: #### C BC #### [facility] [address] [place] [address] Dr. Asim Golden Eosinophils/100 WBC (Bld) 2.9 % Normal 0.9-7.0 [facility] Comment on above: Performed By: #### C BC #### [facility] [address] [place] [address] Dr. Asim Golden Erythrocyte distribution width (RBC) [Ratio] 12.0 % Normal 11.0-15.0 [facility] Comment on above: Performed By: #### C BC #### [facility] [address] [place] [address] Dr. Asim Golden Hematocrit (Bld) [Volume fraction] 42.2 % Normal 36.0-48.0 [facility] Comment on above: Performed By: #### C BC #### [facility] [address] [place] [address] Dr. Asim Golden Hemoglobin (Bld) [Mass/Vol] 14.3 g/dL Normal 12.0-16.0 [facility] Comment on above: Performed By: #### C BC #### [facility] [address] [place] [address] Dr. Asim Golden IG # 0.03 10e3/ul Normal 0.00-0.03 [facility] Comment on above: Performed By: #### C BC #### [facility] [address] [place] [address] Dr. Asim Golden IG % 0.5 % Normal 0.0-0.5 [facility] Comment on above: Performed By: #### C BC #### [facility] [address] [place] [address] Dr. Asim Golden LYMPH # 2.1 103/ul Normal 1.2-3.8 [facility] Comment on above: Performed By: #### C BC #### [facility] [address] [place] [address] Dr. Asim Golden Lymphocytes/100 WBC (Bld) 38.2 % Normal 20.5-60.0 [facility] Comment on above: Performed By: #### C BC #### [facility] [address] [place] [address] Dr. Asim Golden MANUAL DIFF REQ NO Normal [facility] Comment on above: Performed By: #### C BC #### [facility] [address] [place] [address] Dr. Asim Golden MCH (RBC) [Entitic mass] 29.6 pg Normal 26.7-34.0 [facility] Comment on above: Performed By: #### C BC #### [facility] [address] [address] [address] Aism Golden MCHC (RBC) [Mass/Vol] 33.9 g/dL Normal 29.9-35.2 [facility] Comment on above: Performed By: #### C BC #### [facility] [address] [address] [address] Asim Golden MCV (RBC) [Entitic vol] 87.4 fL Normal 81.0-99.0 [facility] Comment on above: Performed By: #### C BC #### [facility] [address] [place] [address] Dr. Asim Golden MONO # 0.6 103/ul Normal 0.3-0.8 [facility] Comment on above: Performed By: #### C BC #### [facility] [address] [place] [address] Dr. Asim Golden Monocytes/100 WBC (Bld) 10.1 % Normal 1.7-12.0 [facility] Comment on above: Performed By: #### C BC #### [facility] [address] [place] [address] Dr. Asim Golden NEUT # 2.6 103/ul Normal 1.4-6.5 [facility] Comment on above: Performed By: #### C BC #### [facility] [address] [place] [address] Dr. Asim Golden Neutrophils/100 WBC (Bld) 47.4 % Normal 43.0-75.0 [facility] Comment on above: Performed By: #### C BC #### [facility] [address] [place] [address] Dr. Asim Golden Platelet mean volume (Bld) [Entitic vol] 10.2 fL Normal 9.5-13.5 [facility] Comment on above: Performed By: #### C BC #### [facility] [address] [place] [address] Dr. Asim Golden PLT 203 103/ul Normal 150-450 [facility] Comment on above: Performed By: #### C BC #### [facility] [address] [place] [address] Dr. Asim Golden RBC 4.83 106/ul Normal 4.20-5.40 [facility] Comment on above: Performed By: #### C BC #### [facility] [address] [address] [address] Asim Golden WBC 5.6 103/ul Normal 4.0-11.0 [facility] Comment on above: Performed By: #### C BC #### [facility] [address] [place] [address] Dr. Asim Golden FREE THYROXINE INDEX T7on FTI 3.22 Normal 1.30-4.50 [facility] Comment on above: Performed By: #### C MP, T7, LIPID, TSH #### [facility] [address] [place] [address] Dr. Asim Golden T3U 35.0 % Normal 30.0-39.0 [facility] Comment on above: Performed By: #### C MP, T7, LIPID, TSH #### [facility] [address] [place] [address] Dr. Asim Golden T4 [Mass/Vol] 9.20 ug/dL Normal 4.80-13.90 [facility] Comment on above: Performed By: #### C MP, T7, LIPID, TSH #### [facility] [address] [place] [address] Dr. Asim Golden GLYCOHEMOGLOBIN A1Con 2022 ADA RECOMMENDATION SEE BELOW Normal [facility] Comment on above: Result Comment: ADA RECOMMENDED LIMIT 4.0 - 6.0 ADA THERAPEUTIC TARGET < 7.0 ACTION SUGGESTED > 7.0 Performed By: #### A 1C #### [facility] [address] [place] [address] Dr. Asim Golden Glucose [Mass/Vol] 105 mg/dL Normal [facility] Comment on above: Performed By: #### A 1C #### [facility] [address] [place] [address] Dr. Asim Golden HbA1c (Bld) [Mass fraction] 5.3 % Normal 4.5-6.2 [facility] Comment on above: Performed By: #### A 1C #### [facility] [address] [address] [address] Asim Golden LIPID PROFILEon 02-23-2023 CHOL-HDL RATIO NORM SEE BELOW Normal [facility] Comment on above: Result Comment: 3.3 - 4.4 LOW RISK 4.4 - 7.1 AVERAGE RISK 7.1 - 11.0 MODERATE RISK >11.0 HIGH RISK Performed By: #### C MP, T7, LIPID, TSH #### [facility] [address] [address] [address] Asim Golden Cholesterol [Mass/Vol] 166 mg/dL Normal <=200 [facility] Comment on above: Performed By: #### C MP, T7, LIPID, TSH #### [facility] [address] [address] [address] Asim Golden Cholesterol in HDL [Mass/Vol] 58 mg/dL Normal 40-60 [facility] Comment on above: Performed By: #### C MP, T7, LIPID, TSH #### [facility] [address] [address] [address] Asim Golden Cholesterol in LDL [Mass/Vol] 95.6 mg/dL Normal [facility] Comment on above: Performed By: #### C MP, T7, LIPID, TSH #### [facility] [address] [address] [address] Asim Golden Cholesterol.total/Cho lesterol in HDL [Mass ratio] 2.9 {ratio} Normal [facility] Comment on above: Performed By: #### C MP, T7, LIPID, TSH #### [facility] [address] [address] [address] Asim Golden HDL NORMAL > or = 60 mg/dl - LOW CARDIOVASCULAR RISK <40 mg/dl - HIGH CARDIOVASCULAR RISK Normal [facility] Comment on above: Performed By: #### C MP, T7, LIPID, TSH #### [facility] [address] [address] [address] Asim Golden LDL CALC NORMAL SEE BELOW Normal [facility] Comment on above: Result Comment: <100 mg/dl OPTIMAL 100 - 129 mg/dl NEAR OR ABOVE OPTIMAL 130 - 159 mg/dl BORDERLINE HIGH 160 - 189 mg/dl HIGH >190 mg/dl VERY HIGH Performed By: #### C MP, T7, LIPID, TSH #### [facility] [address] [address] [address] Asim Golden Triglyceride [Mass/Vol] 62 mg/dL Normal <=150 [facility] Comment on above: Performed By: #### C MP, T7, LIPID, TSH #### [facility] [address] [address] [address] Asim Golden VLDL CALC 12.4 mg/dL Normal [facility] Comment on above: Performed By: #### C MP, T7, LIPID, TSH #### [facility] [address] [address] [address] Asim Golden PROF 14(COMP METB)on 023 Albumin [Mass/Vol] 4.2 g/dL Normal 3.4-5.0 [facility] [place] [facility] Comment on above: Performed By: #### C MP, T7, LIPID, TSH #### [facility] [address] [address] [address] Asim Golden Albumin/Globulin [Mass ratio] 1.1 {ratio} Normal [facility] Comment on above: Performed By: #### C MP, T7, LIPID, TSH #### [facility] [address] [address] [address] Asim Golden ALP [Catalytic activity/Vol] 65 U/L Normal 46-116 [facility] Comment on above: Performed By: #### C MP, T7, LIPID, TSH #### [facility] [address] [address] [address] Asim Golden ALT [Catalytic activity/Vol] 38 U/L Normal 14-59 [facility] Comment on above: Performed By: #### C MP, T7, LIPID, TSH #### [facility] [address] [address] [address] Asim Golden Anion gap [Moles/Vol] 17.1 mmol/L Normal e [facility] Comment on above: Performed By: #### C MP, T7, LIPID, TSH #### [facility] [address] [place] [address] Dr. Asim Golden AST [Catalytic activity/Vol] 22 U/L Normal 15-37 [facility] Comment on above: Performed By: #### C MP, T7, LIPID, TSH #### [facility] [address] [place] [address] Dr. Asim Golden Bilirubin [Mass/Vol] 0.5 mg/dL Normal 0.2-1.0 [facility] Comment on above: Performed By: #### C MP, T7, LIPID, TSH #### [facility] [address] [place] [address] Dr. Asim Golden Calcium [Mass/Vol] 9.3 mg/dL Normal 8.5-10.1 [facility] [place] [facility] Comment on above: Performed By: #### C MP, T7, LIPID, TSH #### [facility] [address] [place] [address] Dr. Asim Golden Chloride [Moles/Vol] 106 mmol/L Normal 98-107 [facility] Comment on above: Performed By: #### C MP, T7, LIPID, TSH #### [facility] [address] [place] [address] Dr. Asim Golden CO2 [Moles/Vol] 26.8 mmol/L Normal 21.0-32.0 [facility] Comment on above: Performed By: #### C MP, T7, LIPID, TSH #### [facility] [address] [place] [address] Dr. Asim Golden Creatinine [Mass/Vol] 0.95 mg/dL Normal 0.55-1.02 [facility] Comment on above: Performed By: #### C MP, T7, LIPID, TSH #### [facility] [address] [place] [address] Dr. Asim Golden EGFR-AF BHUTANESE >60 Normal >=60 [facility] Comment on above: Performed By: #### C MP, T7, LIPID, TSH #### [facility] [address] [address] [address] Asim Golden EGFR-NON AF BHUTANESE >60 Normal >=60 [facility] Comment on above: Performed By: #### C MP, T7, LIPID, TSH #### [facility] [address] [address] [address] Asim Golden Globulin (S) [Mass/Vol] 3.7 g/dL Normal [facility] Comment on above: Performed By: #### C MP, T7, LIPID, TSH #### [facility] [address] [address] [address] Asim Golden Glucose [Mass/Vol] 106 mg/dL Normal 74-106 [facility] Comment on above: Performed By: #### C MP, T7, LIPID, TSH #### [facility] [address] [address] [address] Asim Golden Potassium [Moles/Vol] 4.8 mmol/L Normal 3.5-5.1 [facility] Comment on above: Performed By: #### C MP, T7, LIPID, TSH #### [facility] [address] [address] [address] Asim Golden Protein [Mass/Vol] 7.9 g/dL Normal 6.4-8.2 [facility] Comment on above: Performed By: #### C MP, T7, LIPID, TSH #### [facility] [address] [address] [address] Asim Golden Sodium [Moles/Vol] 145 mmol/L Normal 136-145 [facility] Comment on above: Performed By: #### C MP, T7, LIPID, TSH #### [facility] [address] [address] [address] Asim Golden Urea nitrogen [Mass/Vol] 15.0 mg/dL Normal 7.0-18.0 [facility] Comment on above: Performed By: #### C MP, T7, LIPID, TSH #### [facility] [address] [address] [address] Asim Golden Urea nitrogen/Creatinine [Mass ratio] 15.8 mg/mg Normal [facility] Comment on above: Performed By: #### C MP, T7, LIPID, TSH #### [facility] [address] [place], [place] [address] Dr. Asim Golden TSHon 02-23-2023 TSH 0.858 uIU/mL Normal 0.358-3.740 [facility] Comment on above: Performed By: #### C MP, T7, LIPID, TSH #### [facility] [address] [place], [place] [address] Dr. Asim Golden Coding Summary.on 12-07-2019 Coding Summary. CODING DATE: 12/07/2019 [facility] STATUS: Home (Routine DC) PAYOR: Dennis APC [...] Kacie Arzate Date Saved: 12/07/2019 10:27 am Normal [facility] Vital Signs Date Time Vital Sign Value Performing Clinician Jerardo ochoa 11-29-2023 09:08-0500 Diastolic blood pressure 76 mm[Hg] MD Alexandra Rodriguez Work Phone: [facility] 11-29-2023 09:08-0500 Heart rate 68 /min MD Alexandra Rodriguez Work Phone: [facility] 11-29-2023 09:08-0500 Respiratory rate 14 /min MD Alexandra Rodriguez Work Phone: [facility] 11-29-2023 09:08-0500 SaO2% (BldA) [Mass fraction] 98 % MD Alexandra Rodriguez Work Phone: [facility] 11-29-2023 09:08-0500 Systolic blood pressure 112 mm[Hg] MD Alexandra Rodriguez Work Phone: [facility] 11-29-2023 07:17-0500 Body height 172.72 cm MD Alexandra Rodriguez Work Phone: [facility] 11-29-2023 07:17-0500 Body weight 95.25 kg MD Alexandra Rodriguez Work Phone: [facility] 08-16-2023 09:46-0400 Diastolic blood pressure 67 mm[Hg] MD Alexandra Rodriguez Work Phone: [facility] 08-16-2023 09:46-0400 Heart rate 55 /min MD Alexandra Rodriguez Work Phone: [facility] 08-16-2023 09:46-0400 Respiratory rate 16 /min MD Alexandra Rodriguez Work Phone: [facility] 08-16-2023 09:46-0400 SaO2% (BldA) [Mass fraction] 97 % MD Alexandra Rodriguez Work Phone: [facility] 08-16-2023 09:46-0400 Systolic blood pressure 104 mm[Hg] MD Alexandra Rodriguez Work Phone: [facility] 08-16-2023 07:17-0400 Body height 170.18 cm MD Alexandra Rodriguez Work Phone: [facility] 08-16-2023 07:17-0400 Body temperature 97.9 [degF] MD Alexandra Rodriguez Work Phone: [facility] 08-16-2023 07:17-0400 Body weight 99.79 kg MD Alexandra Rodriguez Work Phone: [facility] Encounters Encounter Date Encounter Type Care Provider Facility Start: 05-24-2024 ambulatory Alexandra Rodriguez MD Facility:[facility] Start: 12-06-2023 End: 12-06-2023 ambulatory Luci Murguia MD Facility: [facility] Start: 11-29-2023 End: 11-29-2023 ambulatory Alexandra Rodriguez Facility:[facility] Start: 11-29-2023 End: 11-29-2023 Admission to same day surgery center MD Alexandra Rodriguez Work Phone: [facility] Work Phone: Start: 11-29-2023 End: 11-29-2023 ambulatory MD Alexandra Rodriguez Work Phone: [facility] Work Phone: Start: 11-01-2023 End: 11-01-2023 ambulatory Luci Murguia MD Facility:[facility] Start: 09-20-2023 End: 09-20-2023 ambulatory Luci Murguia MD Facility:[facility] Start: 08-30-2023 End: 08-30-2023 ambulatory [facility] Start: 08-16-2023 End: 08-16-2023 Admission to same day surgery center MD Alexandra Rodriguez Work Phone: [facility] Work Phone: Start: 08-16-2023 End: 08-16-2023 ambulatory MD Alexandra Rodriguez Work Phone: [facility] Work Phone: Start: 08-02-2023 End: 08-02-2023 ambulatory Alexandra Rodriguez MD Facility: [facility] Start: 06-21-2023 End: 06-21-2023 ambulatory Alexandra Rodriguez MD Facility:[facility] Start: 05-10-2023 End: 05-10-2023 ambulatory Alexandra Rodriguez MD Facility:[facility] Start: 03-01-2023 Encounter for genera l adult medical examination without abnormal findings DR ALEXANDRA RODRIGUEZ . [facility] Start: 02-23-2023 End: 02-24-[address] ALEXANDRA RODRIGUEZ . Facility: Start: 02-23-2023 End: 02-24-2023 Encounter for general adult medical examination without abnormal findings DR ALEXANDRA RODRIGUEZ . Facility:[facility] Procedures Date Procedure Procedure Detail Performing Clinician Start: 11-29-2023 Screening colonoscopy Kae Rodriguez Work Phone: Start: 08-16-2023 Screening colonoscopy Kae Rodriguez Work Phone: Plan of Treatment Date Care Activity Detail Author Start: 11-29-2023 [facility] Start: 08-16-2023 [facility] Patient Education [facility] Work Phone: Payers Date Payer Category Payer Self-pay [id number] 2022 Unknown 1965 Unknown [id number] 1965 Unknown [id number] [id number] 1967 Unknown [id number] [id number]. [id number] 1967 Unknown [id number] 2.16. [id number] 1967 Unknown [id number] 2.16. [id number] 1965 Unknown [id number] 2.16. 840.1.204407.3.579.2.196 1965 Unknown [id number] 2.16. 840.1.902456.3.579.2.196 1967 Unknown [id number] 2.16. 840.1.915578.3.579.2.196 1967 Unknown [id number] 2.16. 840.1.166519.3.579.2.196 1967 Unknown [id number] 2.16. 840.1.739193.3.579.2.196 1967 Unknown [id number] 2.16. 840.1.043420.3.579.2.196 1959 Unknown [id number] Unknown [id number] 2.16.8 40.1.640124.3.579.2.531 Unknown [id number] 2.16.8 40.1.391068.3.579.2.531 Social History Date Type Detail Facility Start: 08-16-2023 End: 11-29-2023 Tobacco smoking status NHIS Smoker (finding) [facility] Start: 1965 Sex Assigned At Female F [facility] Goals Date Patient Goal Desired Activity /State Procedure note 11-29-2023 Note Date & Type Note Facility 11-29-2023 Procedure note [facility] Procedure note 08-16-2023 Note Date & Type Note Facility 08-16-2023 Procedure note [facility] Clinical Note 05-13-2023 Note Date & Type Note Facility 05-13-2023 Note BREAST IMAGING CONSU LTATION: 05/10/2023 CLINICAL: Screening. Comparison is made to exams dated: 05/04/2022 mammogram, 04/28/2021 mammogram, 05/07/2020 ultrasound, 05/07/2020 ultrasound, and 04/24/2020 mammogram - [facility]. The tissue of both breasts is [...] may not be detected on mammograms. The [employer] supports annual screening mammography starting at age 40. Manju glez/dominic:05/13/2023 14:20:14 Attending Technologist(s): RT Stephanie(R)(M), [facility] Truss Puller Helper(s): RT Arpita(R)(M), [facility] letter sent: New Mammo Normal B1/2 Mammogram BI-RADS: 2 Benign Final Dictated by: Manju Sanchez MD Signed by: Manju Sanchez MD Signed (Electronic Signature): 05/13/2023 2:20 pm (If Report Is Signed, Electronically Signed in Other Vendor System) [facility] Evaluation note Note Date & Type Note Facility Evaluation note No assessment information availa [facility] Work Phone: History and physical note Note Date & Type Note Facility History and physical note Note Date/Time August 16, 2023 8: 23am [facility] [address] [place] [address] Gastroenterology H&P Signed Patient: Mirlande Rojas MR#: [id number] : 1965 Acct:[id number] Age/Sex: 57 / F Adm Date: 3 Loc: Room: Type: [facility] Attending Dr: Jordana Ruiz MD Copies to: [...] <Electronically signed by Jordana Ruiz MD> 08/16/23822 [facility] Work Phone: History and physical note Note Date & Type Note Facility History and physical note Note Date/Time November 29, 2023 8:05am [facility] [address] [place] [address] Gastroenterology H&P Signed Patient: Mirlande Rojas MR#: [id number] : 1965 Acct:[id number] Age/Sex: 58 / F Adm Date: 4 Loc: Room: Type: [facility] Attending Dr: Jordana Ruiz MD Copies to: [...] Ruiz M.D. Documented By: Jordana Ruiz MD 11/29/23 0805 Signed By: <Electronically signed by Jordana Ruiz MD> 11/29/2332 [facility] Work Phone: Hospital Discharge instructions Note Date [...] problems. -Follow up with PCP. -Office number [phone]. [facility] Work Phone: Hospital Discharge instructions Note Date [...] NOT operate machinery such as power tools, Betif[employer] mowers, snow blowers, sewing machines, etc. for [...] years. -Follow up with PCP. -Office number [phone]. [facility] Work Phone: Summary Purpose Family History No [...] and content) DATE CREATED AUTHOR 12/07/2019 [facility] DATE CREATED AUTHOR AUTHOR'S ORGANIZ ATION 03/01/[address] [facility] DATE CREATED AUTHOR AUTHOR'S ORGANIZ ATION 12/08/2023 [facility] DATE CREATED AUTHOR AUTHOR'S ORGANIZ ATION 05/05/2024 [facility] Care Teams (unrecognized sec tion and content) Team Status: Active Member Role Status Radha Rodriguez MD Primary Care Provider Active Team Status: Inactive Member Role Status Radha Rodriguez MD Primary Care Provider Active Jordana [...] BE BASED ON THE PRIMARY CLINICAL RECORDS. [employer] provides no warranty or guarantee of the accuracy or completeness of information in this document.
[2024-05-15 12:10] LABS: Free T4 1.05 ng/dL (0.76-1.46)
[2024-05-15 12:37] LABS: Estimated Average Glucose 111 mg/dL; Glycohemoglobin A1C 5.5 % (4.5-6.2)
[2024-05-15 12:39] LABS: Chloride 101 mmol/L (98-107); Potassium 4.3 mmol/L (3.5-5.1); Sodium 139 mmol/L (136-145)
[2024-05-15 12:40] LABS: Anion Gap 12.5; BUN Creatinine Ratio 15.2; Bilirubin Total 0.6 mg/dL (0.2-1.0); Calcium 9.1 mg/dL (8.5-10.1); Carbon Dioxide 29.8 mmol/L (21.0-32.0); Estimated GFR (African America >60 (>=60); Estimated GFR (Non-African Ame >60 (>=60); Glucose 99 mg/dL (74-106)
[2024-05-15 12:41] LABS: Alanine Aminotransferase 40 U/L (14-59); Albumin Globulin Ratio 1.1; Albumin Level 4.2 g/dL (3.4-5.0); Alkaline Phosphatase 72 U/L (46-116); Aspartate Amino Transferase 26 U/L (15-37); Cholesterol 176 mg/dL (<=200); Total Protein 8.2 g/dL (6.4-8.2); Triglycerides 87 mg/dL (<=150); VLDL CHOLESTEROL 17.4 mg/dL
[2024-05-15 12:42] LABS: Chol HDL Ratio 2.6; HDL Cholesterol 68 mg/dL (40-60); Thyroid Stimulating Hormone 1.141 uIU/mL (0.358-3.740)
== END 2024-05-15 11:19 | disposition home or self-care (01) ==
LOC: LAB 11:19
PROVIDERS: PCP Family Medicine; Visit Provider Family Medicine
DX: Z00.00 Encounter for general adult medical examination without abnormal findings (principal)
CPT/HCPCS: 36415; 80053; 80061; 83036; 84439; 84443; 85025

== ENCOUNTER 2025-05-28 09:23 | Outpatient (OUT) | payer BC, SELFPAY ==
--- OUTSIDE RECORDS SUMMARY | 2025-05-28 09:41 | XMS_ITS | CCD ---
Author Organization [facility] Care Team Providers Care Mortgage Protection Specialist Name Role Phone KARINA Sanders, DR MORRIS Admitting Unavailable KARINA ., DR MORRIS Attending Unavailable KARINA ., DR MORRIS Primary Care Unavailable KARINA Sanders, DR MORRIS Consulting Unavailable MD Alexandra Rodriguez Primary Care Provider [phone] MD Sara Imovi Attending Provider [phone] MD Alexandra Rodriguez Primary Care Provider [phone] MD Sara Imovi Attending Provider Alexandra Rodriguez Primary Care Unavailable Asaad, Imad Admitting Unavailable Asaad, Imad Attending Alexandra Ortega Primary Care Unavailable Asaad, Imad Admitting Unavailable Asaad, Imad Attending Unavailable Colleen THOMAS, Yanira Nick Attending Alexandra Gonzalez MD [facility] UnavailAlexandra Gray MD [facility] Unavaila rell Macias PA-C, Yanira Nick Attending Adina natacha Macias PA-C, Yanira Nick Attending Adina Alexandra Brunson MD [facility] UnavailAlexandra Gray MD [facility] Unavaila rell Macias PA-C, Yanira Nick Attending Adina natacha Macias PA-C, Yanira Nick Attending Alexandra Gonzalez MD [facility] Ezio Macias PA-C, Yanira Nick Attending Alexandra Gonzalez MD [facility] Shannana rell Medications Current Medications Medication Drug Class(es) Dates [...] Test Name Value Interpretation Reference Range Facil ity Gynecology Office/Clinic Not zainab 07-18-2024 Gynecology Office/Clinic Note Chief Complaint Chief Complaint 6-8 week med check-Vesicare. History of Present Illness Abnormal Vaginal Discharge: No Abnormal Vaginal Bleeding: No Vaginal Itch: No Vaginal Burning: No Vaginal Odor: No Sexually Active: Yes Comments 07/10/24 15:54:00 58 y/o . 6-8 week med check-Vesicare. 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 Medication management 2. Urinary incontinence in female Medical Decision Making Chronic conditions NOT treated during this visit that affected my overall medical decision making: [] Treatment plans discussed but not opted for at this time: [] Prescribed medication that requires intensive monitoring for toxicity: [] I have reviewed the patient?s medication list for medication interactions/contrai ndications and/or for upcoming procedures: [yes or no] Time Spent with the Patient I have personally spent [] minutes on this date, directly related to today's patient visit, including pre and post visit work, for this date of service. Time listed does not include time spent on separately billable services. OB History History (0,0,0,0) No previous pregnancies history have been recorded Women's Health Screening Last Pap Smear No qualifying data available. Last HPV No qualifying data available. Bone Density BD Bone Density (2 Areas) 04/24/20 15:57:38 Impression: Normal bone mineral density Mammograms MG Mammogram Digital Screen Bilat +[employer] 05/24/24 15:18:00 #[id number] - MG MAMMOGRAM DIGITAL SCREEN BILAT + CISCO BILATERAL DIGITAL SCREENING MAMMOGRAM 3D/2D WITH CAD: 05/24/2024 CLINICAL: Screening. Comparison is made to exams dated: 05/10/2023 mammogram, 05/04/2022 mammogram, 04/28/2021 mammogram, 05/07/2020 ultrasound, 05/07/2020 ultrasound, and 04/24/2020 mammogram - [facility]. The breasts are almost entirely fatty. Current study was also evaluated with a Computer Aided Detection (CAD) system. There is a benign nodule in the left breast. There also are benign scattered calcifications in the right breast. No significant masses, calcifications, or other findings are seen in either breast. There has been no significant interval change. IMPRESSION: BENIGN There is no mammographic evidence of malignancy. A 1 year screening mammogram is recommended. (05/25/2025) The patient was notified of the results. Investigation of a clinically suspicious lesion should not be precluded by the lack of specific imaging findings. 10-15% of breast cancers may not be detected on mammograms. The [employer] supports annual screening mammography starting at age 40. Manju Sanchez MD [facility]/penrad:05/25/2024 09:13:27 Winding Operator(s): Isidra Bone [facility] letter sent: New Mammo Normal B1/2 Mammogram BI-RADS: 2 Benign Problem List/Past Medical History Ongoing Cystocele, midline Depression GERD (gastroesophageal reflux disease) Rectocele S/P total hysterectomy and bilateral salpingo-oophorectom y Historical Arthritis Incontinence of urine in female Medication management Procedure/Surgical History Colonoscopy lesion removed from R middle finger lumpectomy right breast ovarian cyst removed tubal ligation tonsillectomy total lap hysterectomy bso, Morales, D&C , cystoscopy. (05/10/2015) Morales Procedure Robotic Si (08/17/2017) Repair Posterior Vagina (08/17/2017) lumbar RFA (2023) Medications FLUoxetine 20 mg oral tablet, 20 mg= 1 tabs, Oral, Daily, 4 refills, take in addition to 10 for 30mg total ibuprofen 800 mg oral tablet, 800 mg= 1 tabs, Oral, q8hr, 1 refills lansoprazole 30 mg oral delayed release capsule, 30 mg= 1 caps, Oral, qAM lisinopril 5 mg oral tablet, 5 mg= 1 tabs, Oral, Daily meloxicam 15 mg oral tablet, 15 mg= 1 tabs, Oral, Daily PROzac 10 mg oral capsule, 10 mg= 1 caps, Oral, Daily, 3 refills, take in addition to 20mg for a total of 30mg daily simvastatin 20 mg oral tablet, 20 mg= 1 tabs, Oral, HS (at bedtime) VESIcare 5 mg oral tablet, 5 mg= 1 tabs, Oral, Daily, 11 refills Allergies No Known Allergies Social History Alcohol Current, Beer, 1-2 times per week, Previous treatment: None. 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 Exercise Exercise duration: 0. Home/Environment Lives with Spouse, ADULT DAUGHTER & GRANDCHILD. Living situation: Home/Independent. , 2 DOGS Nutrition/Health Regular, Caffeine intake (more content not included)... [facility] Comment on above: Order Comment: Sola led MG Mammogram Digital Screen Bilat + [employer] 05-25-2024 MG Mammogram Digital Screen Bilat + [employer] #[id number] - MG MAMMOGRAM DIGITAL SCREEN BILAT + CISCO BILATERAL DIGITAL SCREENING MAMMOGRAM 3D/2D WITH CAD: 05/24/2024 CLINICAL: Screening. Comparison is made to exams dated: 05/10/2023 mammogram, 05/04/2022 mammogram, 04/28/2021 mammogram, 05/07/2020 ultrasound, 05/07/2020 ultrasound, and 04/24/2020 mammogram - [facility]. The breasts are almost entirely fatty. Current study was also evaluated with a Computer Aided Detection (CAD) system. There is a benign nodule in the left breast. There also are benign scattered calcifications in the right breast. No significant masses, calcifications, or other findings are seen in either breast. There has been no significant interval change. IMPRESSION: BENIGN There is no mammographic evidence of malignancy. A 1 year screening mammogram is recommended. (05/25/2025) The patient was notified of the results. Investigation of a clinically suspicious lesion should not be precluded by the lack of specific imaging findings. 10-15% of breast cancers may not be detected on mammograms. The [employer] supports annual screening mammography starting at age 40. Manju Sanchez MD [facility]/penrad:05/25/2024 09:13:27 Winding Operator(s): Isidra Bone, [facility] letter sent: New Mammo Normal B1/2 Mammogram BI-RADS: 2 Benign Final Dictated by: Manju Sanchez MD Signed by: Manju Sanchez MD Signed (Electronic Signature): 05/25/2024 9:13 am (If Report Is Signed, Electronically Signed in Other Vendor System) [facility] Gynecology Office/Clinic Not zainab 05-24-2024 Gynecology Office/Clinic Note Chief Complaint Annual History of Present Illness Pelvic Pain: No Painful Sex: No Abnormal Vaginal Discharge: No Abnormal Vaginal Bleeding: No Vaginal Dryness: No Vaginal Itch: No Vaginal Burning: No Vaginal Odor: No Hot Flashes: Yes Night Sweats: No Breast Lump: No Breast Pain: No Sexually Active: Yes Comments 05/17/24 14:23:00 58 y/o . Annual. Last pap: h/o TLH/BSO. Mammogram: 05/10/23 Benign, fatty tissue-has today Colonoscopy: 11/29/23 Q 5 yrs at [facility] Bone Density: 04/24/[address] Rodriguez C/o worsening urinary incontinence. Wears depends pad daily. Increased dose of Oxybutynin not helping. 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 Contraception Contraception TypeTubal ligation Review of Systems Head Migraines: No Headaches: No Eyes Corrective Lenses: Glasses Corrective Lenses comment: reading Ears, Nose, Throat Congestion: No Vertigo: No Sore throat: No Nasal drainage: No Cardio Respiratory Peripheral edema: No Heart Irregularity: No Chest Pain: No Shortness of Breath: No Gastrointestinal Bloating: No Reflux/heartburn: Yes Reflux/heartburn comment: GERD Abdominal Pain: No Change in bowel habits: No Urinary Urinary Incontinence: Yes Urinary frequency: No Nocturia: Yes Nocturia comment: at least 2x Urgency: Yes Painful urination: No Musculoskeletal Back Pain: Yes Muscle Aches: No Joint Pain: No Integumentary Lesions: No Moles: No Acne: No Hair changes: No PsychoSocial Sleep Problems: No Anxiety: No Suicidal Ideation: No Homicidal Ideation: No Depression: No Hematologic/Lymphati c Lymphadenopathy: No Thromboembolism: No Bruising: No Bleeding tendencies: No Endocrine Abnormal weight gain: No Abnormal weight loss: No Fatigue: No Physical Exam Vitals & Measurements BP: 118/70 HT: 180 cm WT: 97.0 kg WT: 97.0 kg (Dosing) BMI: 29.94 General: Alert and oriented, well nourished, no [...] meatus, no lesions, vulvar skin intact. Genitourinary: Normal vaginal mucosa, no lesions or abnormal discharge, cervix surgically absent, no bleeding. Gd 1 cystocele and rectocele. Bimanual exam: Absent uterus-s/p [facility] BSO Assessment/Plan 1. Encounter for gynecological examination Annual exam 1. Continue with breast self-exam/mammogram/ colonoscopy screening 2. Maintain a low-fat, low sugar diet 3. Weight management, BMI, exercise (30 minutes daily) 4. Water intake (64 oz daily) and decrease caffeine 5. Calcium supplement with Vitamin D 6. Discussed menopausal symptom management 7. Reviewed with pt both stress and urge incontinence symptoms and treatment options including behavioral modifications, Kegels, medications, PTNM, Botox and InterStim. At this time, she opted to try another medication. Discussed risks/benefits/side effects of medication and she wished to try Vesicare. She will f/u in 4 weeks for medication check. She will fill out another bladder diary as well and will discuss third line treatment options at next appt. Minimal gd 1 cystocele and rectocele today's exam. F/u 1 year for annual exam and she will call with any questions/problems prior to next appt. Orders: solifenacin, 1 tabs, Oral, Daily, # 30 tabs, 11 Refill(s), Pharmacy: [id number] BD Bone Density (2 Areas) MG Mammogram Digital Screen Bilat +[employer] Medical Decision Making Chronic conditions NOT treated during this visit that affected my overall medical decision making: none Treatment plans discussed but not opted for at this time: see above Prescribed medication that requires intensive monitoring for toxicity: no I have reviewed the patient?s medication list for medication interactions/contrai ndications and/or for upcoming procedures: no Time Spent with the Patient I have personally spent 32 minutes on this date, directly related to today's patient visit, including pre and post visit work, for this date of service. Time listed does not include time spent on separately billable services. OB History History (0,0,0,0) No previous pregnancies history hav (more content not included)... [facility] Cristino 11-29-2023 L Specimen: [id number] Received: 11/29/23 Status: SERGO Juan Num: [id number] Spec Type: Surgical Subm Dr: Jordana Ruiz MD Tissues: A Colon Biopsy (RECTAL POLYP) Procedures: HE/2, Gross/Micro L4 Age/ Patient Sex Location Account Attending Physician CrystalMirlande Kae 58/F [id number] Jordana Ruiz MD SPEC NUM: [id number] RECD: 11/29/23 STATUS: SERGO MARTINEZ NUM: [id number] JUSTEN: 11/29/23 [facility] DR: Jordana Ruiz MD ENTERED: 11/29/23 [facility] DR: MECHELLE TYPE: Surgical DEPT: S ORDERED: [...] microscopic examination confirms the diagnosis. CPT Codes 84810 Specimen: [id number] Received: 11/29/23 Status: SERGO Martinez Num: [id number] Spec Type: Surgical Subm Dr: Jordana Ruiz MD Tissues: A Colon Biopsy (RECTAL POLYP) Procedures: MEERA/Chad, Paul/Aviva L4 Patient: Mirlande Rojas [id number] (Continued) Signed (signature on file) Samira Elena MD 11/30/23922 [facility] 08-16-2023 L Specimen: [id number] Received: 08/16/23 Status: SERGO Juan Num: [id number] Spec Type: Surgical Subm Dr: Jordana Ruiz MD Tissues: A Colon Biopsy (ASCENDING POLYP) Procedures: HE/5, Gross/Micro L4 Age/ Patient Sex Location Account Attending Physician Mirlande Rojas 57/F [id number] Jordana Ruiz MD SPEC NUM: [id number] RECD: 08/16/23 STATUS: SERGO JUAN NUM: [id number] JUSTEN: 08/16/23 DR: Jordana Ruiz MD ENTERED: 08/16/23 [facility] REG[facility]: MECHELLE TYPE: Surgical DEPT: S ORDERED: HE/5, [...] microscopic examination confirms the diagnosis. CPT Codes 59664 Specimen: [id number] Received: 08/16/23 Status: SERGO Martinez Num: [id number] Spec Type: Surgical Subm Dr: Jordana Ruiz MD Tissues: A Colon Biopsy (ASCENDING POLYP) Procedures: MEERA/Anna, Gross/Micro L4 Patient: CrystalMirlande [id number] (Continued) Signed (signature on file) Krystal Golden MD 08/17/23 1455 [facility] CBC AUTO DIFFon 02-23-2023 BASO # 0.1 103/ul Normal 0.0-0.1 [facility] Comment on above: Performed By: #### C BC #### [facility] [address] [address] [address] Asim Golden Basophils/100 WBC (Bld) 0.9 % Normal 0.2-2.0 [facility] Comment on above: Performed By: #### C BC #### [facility] [address] [place] [address] Dr. Asim Golden EO # 0.2 103/ul Normal 0.0-0.7 [facility] Comment on above: Performed By: #### C BC #### [facility] [address] [address] [address] Asim Golden Eosinophils/100 WBC (Bld) 2.9 % Normal 0.9-7.0 [facility] Comment on above: Performed By: #### C BC #### [facility] [address] [address] [address] Asim Golden Erythrocyte distribution width (RBC) [Ratio] 12.0 % Normal 11.0-15.0 [facility] Comment on above: Performed By: #### C BC #### [facility] [address] [place] [address] Dr. Asim Golden Hematocrit (Bld) [Volume fraction] 42.2 % Normal 36.0-48.0 [facility] Comment on above: Performed By: #### C BC #### [facility] [address] [place] [address] Dr. Asim Golden Hemoglobin (Bld) [Mass/Vol] 14.3 g/dL Normal 12.0-16.0 [facility] Comment on above: Performed By: #### C BC #### [facility] [address] [place] [address] Dr. Asim Golden IG # 0.03 10e3/ul Normal 0.00-0.03 [facility] Comment on above: Performed By: #### C BC #### [facility] [address] [place] [address] Dr. Asim Golden IG % 0.5 % Normal 0.0-0.5 [facility] Comment on above: Performed By: #### C BC #### [facility] [address] [place] [address] Dr. Asim Golden LYMPH # 2.1 103/ul Normal 1.2-3.8 [facility] Comment on above: Performed By: #### C BC #### [facility] [address] [place] [address] Dr. Asim Golden Lymphocytes/100 WBC (Bld) 38.2 % Normal 20.5-60.0 [facility] Comment on above: Performed By: #### C BC #### [facility] [address] [place] [address] Dr. Asim Golden MANUAL DIFF REQ NO Normal [facility] Comment on above: Performed By: #### C BC #### [facility] [address] [place] [address] Dr. Asim Golden MCH (RBC) [Entitic mass] 29.6 pg Normal 26.7-34.0 [facility] Comment on above: Performed By: #### C BC #### [facility] [address] [place] [address] Dr. Asim Golden MCHC (RBC) [Mass/Vol] 33.9 g/dL Normal 29.9-35.2 [facility] Comment on above: Performed By: #### C BC #### [facility] [address] [place] [address] Dr. Asim Golden MCV (RBC) [Entitic vol] 87.4 fL Normal 81.0-99.0 [facility] Comment on above: Performed By: #### C BC #### [facility] [address] [place] [address] Dr. Asim Golden MONO # 0.6 103/ul Normal 0.3-0.8 [facility] Comment on above: Performed By: #### C BC #### [facility] [address] [place] [address] Dr. Asim Golden Monocytes/100 WBC (Bld) 10.1 % Normal 1.7-12.0 [facility] Comment on above: Performed By: #### C BC #### [facility] [address] [place] [address] Dr. Asim Golden NEUT # 2.6 103/ul Normal 1.4-6.5 [facility] Comment on above: Performed By: #### C BC #### [facility] [address] [place] [address] Dr. Asim Golden Neutrophils/100 WBC (Bld) 47.4 % Normal 43.0-75.0 [facility] Comment on above: Performed By: #### C BC #### [facility] [address] [place] [address] Dr. Asim Golden Platelet mean volume (Bld) [Entitic vol] 10.2 fL Normal 9.5-13.5 [facility] Comment on above: Performed By: #### C BC #### [facility] [address] [place] [address] Dr. Asim Golden PLT 203 103/ul Normal 150-450 [facility] Comment on above: Performed By: #### C BC #### [facility] [address] [place] [address] Dr. Asim Golden RBC 4.83 106/ul Normal 4.20-5.40 [facility] Comment on above: Performed By: #### C BC #### [facility] [address] [place] [address] Dr. Asim Golden WBC 5.6 103/ul Normal 4.0-11.0 [facility] Comment on above: Performed By: #### C BC #### [facility] [address] [place] [address] Dr. Asim Golden FREE THYROXINE INDEX T7on FTI 3.22 Normal 1.30-4.50 [facility] Comment on above: Performed By: #### C MP, T7, LIPID, TSH #### [facility] [address] [place] [address] Dr. Asim Golden T3U 35.0 % Normal 30.0-39.0 [facility] Comment on above: Performed By: #### C MP, T7, LIPID, TSH #### [facility] [address] [place] [address] Dr. Asim Golden T4 [Mass/Vol] 9.20 ug/dL Normal 4.80-13.90 [facility] Comment on above: Performed By: #### C MP, T7, LIPID, TSH #### [facility] [address] [place] [address] Dr. Asim Golden GLYCOHEMOGLOBIN A1Con 2022 ADA RECOMMENDATION SEE BELOW Normal [facility] Comment on above: Result Comment: ADA RECOMMENDED LIMIT 4.0 - 6.0 ADA THERAPEUTIC TARGET < 7.0 ACTION SUGGESTED > 7.0 Performed By: #### A 1C #### [facility] [address] [place] [address] Dr. Asim Golden Glucose [Mass/Vol] 105 mg/dL Normal [facility] Comment on above: Performed By: #### A 1C #### [facility] [address] [place] [address] Dr. Asim Golden HbA1c (Bld) [Mass fraction] 5.3 % Normal 4.5-6.2 [facility] Comment on above: Performed By: #### A 1C #### [facility] [address] [place] [address] Dr. Asim Golden LIPID PROFILEon 02-23-2023 CHOL-HDL RATIO NORM SEE BELOW Normal [facility] Comment on above: Result Comment: 3.3 - 4.4 LOW RISK 4.4 - 7.1 AVERAGE RISK 7.1 - 11.0 MODERATE RISK >11.0 HIGH RISK Performed By: #### C MP, T7, LIPID, TSH #### [facility] [address] [place] [address] Dr. Asim Golden Cholesterol [Mass/Vol] 166 mg/dL Normal <=200 [facility] Comment on above: Performed By: #### C MP, T7, LIPID, TSH #### [facility] [address] [address] [address] Asim Golden Cholesterol in HDL [Mass/Vol] 58 mg/dL Normal 40-60 [facility] Comment on above: Performed By: #### C MP, T7, LIPID, TSH #### [facility] [address] [address] [address] Asim Golden Cholesterol in LDL [Mass/Vol] 95.6 mg/dL Normal [facility] Comment on above: Performed By: #### C MP, T7, LIPID, TSH #### [facility] [address] [address] [address] Asim Golden Cholesterol.total/Cho lesterol in HDL [Mass ratio] 2.9 {ratio} Normal [facility] Comment on above: Performed By: #### C MP, T7, LIPID, TSH #### [facility] [address] [address] [address] Asim Golden HDL NORMAL > or = 60 mg/dl - LOW CARDIOVASCULAR RISK <40 mg/dl - HIGH CARDIOVASCULAR RISK Normal [facility] Comment on above: Performed By: #### C MP, T7, LIPID, TSH #### [facility] [address] [address] [address] Asim Golden LDL CALC NORMAL SEE BELOW Normal [facility] Comment on above: Result Comment: <100 mg/dl OPTIMAL 100 - 129 mg/dl NEAR OR ABOVE OPTIMAL 130 - 159 mg/dl BORDERLINE HIGH 160 - 189 mg/dl HIGH >190 mg/dl VERY HIGH Performed By: #### C MP, T7, LIPID, TSH #### [facility] [address] [address] [address] Asim Golden Triglyceride [Mass/Vol] 62 mg/dL Normal <=150 [facility] Comment on above: Performed By: #### C MP, T7, LIPID, TSH #### [facility] [address] [address] [address] Asim Golden VLDL CALC 12.4 mg/dL Normal [facility] Comment on above: Performed By: #### C MP, T7, LIPID, TSH #### [facility] [address] [address] [address] Asim Golden PROF 14(COMP METB)on 023 Albumin [Mass/Vol] 4.2 g/dL Normal 3.4-5.0 [facility] Comment on above: Performed By: #### C MP, T7, LIPID, TSH #### [facility] [address] [address] [address] Aism Golden Albumin/Globulin [Mass ratio] 1.1 {ratio} Normal [facility] Comment on above: Performed By: #### C MP, T7, LIPID, TSH #### [facility] [address] [place] [address] Dr. Asim Golden ALP [Catalytic activity/Vol] 65 U/L Normal 46-116 [facility] Comment on above: Performed By: #### C MP, T7, LIPID, TSH #### [facility] [address] [place] [address] Dr. Asim Golden ALT [Catalytic activity/Vol] 38 U/L Normal 14-59 [facility] Comment on above: Performed By: #### C MP, T7, LIPID, TSH #### [facility] [address] [place] [address] Dr. Asim Golden Anion gap [Moles/Vol] 17.1 mmol/L Normal [facility] Comment on above: Performed By: #### C MP, T7, LIPID, TSH #### [facility] [address] [place] [address] Dr. Asim Golden AST [Catalytic activity/Vol] 22 U/L Normal 15-37 [facility] Comment on above: Performed By: #### C MP, T7, LIPID, TSH #### [facility] [address] [place] [address] Dr. Asim Golden Bilirubin [Mass/Vol] 0.5 mg/dL Normal 0.2-1.0 [facility] Comment on above: Performed By: #### C MP, T7, LIPID, TSH #### [facility] [address] [address] [address] Asim Golden Calcium [Mass/Vol] 9.3 mg/dL Normal 8.5-10.1 [facility] Comment on above: Performed By: #### C MP, T7, LIPID, TSH #### [facility] [address] [address] [address] Asim Golden Chloride [Moles/Vol] 106 mmol/L Normal 98-107 [facility] Comment on above: Performed By: #### C MP, T7, LIPID, TSH #### [facility] [address] [address] [address] Asim Golden CO2 [Moles/Vol] 26.8 mmol/L Normal 21.0-32.0 [facility] Comment on above: Performed By: #### C MP, T7, LIPID, TSH #### [facility] [address] [place] [address] Dr. Asim Golden Creatinine [Mass/Vol] 0.95 mg/dL Normal 0.55-1.02 [facility] Comment on above: Performed By: #### C MP, T7, LIPID, TSH #### [facility] [address] [place] [address] Dr. Asim Golden EGFR-AF KENYAN >60 Normal >=60 [facility] Comment on above: Performed By: #### C MP, T7, LIPID, TSH #### [facility] [address] [place] [address] Dr. Asim oGlden EGFR-NON AF KENYAN >60 Normal >=60 [facility] Comment on above: Performed By: #### C MP, T7, LIPID, TSH #### [facility] [address] [address] [address] Asim Golden Globulin (S) [Mass/Vol] 3.7 g/dL Normal [facility] Comment on above: Performed By: #### C MP, T7, LIPID, TSH #### [facility] [address] [place] [address] Dr. Asim Golden Glucose [Mass/Vol] 106 mg/dL Normal 74-106 [facility] Comment on above: Performed By: #### C MP, T7, LIPID, TSH #### [facility] [address] [address] [address] Asim Golden Potassium [Moles/Vol] 4.8 mmol/L Normal 3.5-5.1 [facility] Comment on above: Performed By: #### C MP, T7, LIPID, TSH #### [facility] [address] [address] [address] Asim Golden Protein [Mass/Vol] 7.9 g/dL Normal 6.4-8.2 [facility] Comment on above: Performed By: #### C MP, T7, LIPID, TSH #### [facility] [address] [place] [address] Dr. Asim Golden Sodium [Moles/Vol] 145 mmol/L Normal 136-145 [facility] Comment on above: Performed By: #### C MP, T7, LIPID, TSH #### [facility] [address] [address] [address] Asim Golden Urea nitrogen [Mass/Vol] 15.0 mg/dL Normal 7.0-18.0 [facility] Comment on above: Performed By: #### C MP, T7, LIPID, TSH #### [facility] [address] [place] [address] Dr. Asim Golden Urea nitrogen/Creatinine [Mass ratio] 15.8 mg/mg Normal [facility] Comment on above: Performed By: #### C MP, T7, LIPID, TSH #### [facility] [address] [place] [address] Dr. Asim Golden TSHon 02-23-2023 TSH 0.858 uIU/mL Normal 0.358-3.740 [facility] Comment on above: Performed By: #### C MP, T7, LIPID, TSH #### [facility] [address] [place] [address] Dr. Asim Golden Coding Summary.on 12-07-2019 Coding Summary. CODING DATE: 12/07/2019 [facility] STATUS: Home (Routine DC) PAYOR: Dennis APC [...] Arzate Date Saved: 12/07/2019 10:27 am Normal [facility] Vital Signs Date Time Vital Sign Value Performing Clinician Jerardo ochoa 11-29-2023 09:08-0500 Diastolic blood pressure 76 mm[Hg] MD Alexandra Rodriguez Work Phone: [facility] 11-29-2023 09:08-0500 Heart rate 68 /min MD Alexandra Rodriguez Work Phone: [facility] 11-29-2023 09:08-0500 Respiratory rate 14 /min MD Alexandra Rodriguez Work Phone: [facility] 11-29-2023 09:08-0500 SaO2% (BldA) [Mass fraction] 98 % MD Alexandra Rodriguez Work Phone: [facility] 11-29-2023 09:08-0500 Systolic blood pressure 112 mm[Hg] MD Alexandra Rodriguez Work Phone: [facility] 11-29-2023 07:17-0500 Body height 172.72 cm MD Alexandra Rodriguez Work Phone: [facility] 11-29-2023 07:17-0500 Body weight 95.25 kg MD Alexandra Rodriguez Work Phone: [facility] 08-16-2023 09:46-0400 Diastolic blood pressure 67 mm[Hg] MD Alexandra Rodriguez Work Phone: [facility] 08-16-2023 09:46-0400 Heart rate 55 /min MD Alexandra Rodriguez Work Phone: [facility] 08-16-2023 09:46-0400 Respiratory rate 16 /min MD Alexandra Rodriguez Work Phone: [facility] 08-16-2023 09:46-0400 SaO2% (BldA) [Mass fraction] 97 % MD Alexandra Rodriguez Work Phone: [facility] 08-16-2023 09:46-0400 Systolic blood pressure 104 mm[Hg] MD Alexandra Rodriguez Work Phone: [facility] 08-16-2023 07:17-0400 Body height 170.18 cm MD Alexandra Rodriguez Work Phone: [facility] 08-16-2023 07:17-0400 Body temperature 97.9 [degF] MD Alexandra Rodriguez Work Phone: [facility] 08-16-2023 07:17-0400 Body weight 99.79 kg MD Alexandra Rodriguez Work Phone: [facility] Encounters Encounter Date Encounter Type Care Provider Facility Start: 05-28-2025 ambulatory Yanira palacios PA-C Facility:[facility] Start: 01-24-2025 ambulatory Yanira palacios PA-C Facility:[facility] Start: 07-18-2024 End: 07-18-2024 ambulatory Yanira Macias PA-C Facility:[facility] Start: 05-24-2024 ambulatory Yanira palacios PA-C Facility:[facility] Start: 05-24-2024 End: 05-24-2024 ambulatory Alexandra Rodriguez MD Facility:[facility] Start: 11-29-2023 End: 11-29-2023 ambulatory Alexandra Rodriguez Facility:[facility] Start: 11-29-2023 End: 11-29-2023 Admission to same day surgery center MD Alexandra Rodriguez Work Phone: [facility] Work Phone: Start: 11-29-2023 End: 11-29-2023 ambulatory MD Alexandra Rodriguez Work Phone: [facility] Work Phone: Start: 08-16-2023 End: 08-16-2023 Admission to same day surgery center MD Alexandra Rodriguez Work Phone: [facility] Work Phone: Start: 08-16-2023 End: 08-16-2023 ambulatory MD Alexandra Rodriguez Work Phone: [facility] Work Phone: Start: 03-01-2023 Encounter for genera l adult medical examination without abnormal findings DR ALEXANDRA RODRIGUEZ . [facility] Start: 02-23-2023 End: 02-24-[address] ALEXANDRA RODRIGUEZ . Facility: Start: 02-23-2023 End: 02-24-2023 Encounter for general adult medical examination without abnormal findings DR ALEXANDRA RODRIGUEZ . Facility: Procedures Date Procedure Procedure Detail Performing Clinician Start: 11-29-2023 Screening colonoscopy Kae Rodriguez Work Phone: Start: 08-16-2023 Screening colonoscopy Kae Rodriguez Work Phone: Plan of Treatment Date Care Activity Detail Author Start: 11-29-2023 [facility] Start: 08-16-2023 [facility] Patient Education [facility] Work Phone: Payers Date Payer Category Payer Self-pay [id number] 2022 Unknown 1965 Unknown [id number] 1965 Unknown [id number] .. [id number] 1965 Unknown [id number] .. [id number] 1965 Unknown [id number] 2.16. [id number] 1965 Unknown [id number] 2.16. [id number] 1965 Unknown [id number] 2.16. [id number] 1965 Unknown [id number] 2.16. [id number] 1957 Unknown [id number] Unknown [id number] 2.16.8 [id number] Unknown [id number] 2.16.8 [id number] Social History Date Type Detail Facility Start: 08-16-2023 End: 11-29-2023 Tobacco smoking status NHIS Smoker (finding) [facility] Start: 1965 Sex Assigned At Female F [facility] Goals Date Patient Goal Desired Activity /State Clinical Note 07-10-2024 Note Date & Type Note Facility 07-10-2024 Note Patient Education Ma terials Name: CrystalMirlande alfred Current Date: 07/10/2024 15:58:23 [place] : 1965 The following sheet(s) are the Patient Education Leaflets for Mirlande Rojas Ambulatory Urinary Incontinence, Female (Adult) We understand that gender is a spectrum. We may use gendered terms to talk about anatomy and health risk. Please use this sheet in a way that works best for you and your provider as you talk about your care. Urinary incontinence means loss of bladder control.?This problem affects many women, especially as they get older. If you have incontinence, you may be embarrassed to ask for help. But know that this problem can be treated. Types of incontinence There are different types of incontinence. The main types are described here. You can have more than 1 type. ?Stress incontinence. With this type, urine leaks when pressure (stress) is put on the bladder.?This may happen when you cough, sneeze, or laugh. Stress incontinence most often occurs because the pelvic floor muscles that support the bladder and urethra are weak.?This can happen after and vaginal childbirth or a hysterectomy. It can also be due to excess body weight or hormone changes. ?Urge incontinence (also called overactive bladder). With this type, a sudden urge to urinate is felt often. This may happen even though there may not be much urine in the bladder. The need to urinate often during the night is common. Urge incontinence most often occurs because of bladder spasms.?This may be due to bladder irritation or infection. Damage to bladder nerves or pelvic muscles, constipation, and certain medicines can also lead to urge incontinence. ?Mixed incontinence. This type is when a person has both stress and urge incontinence. ?Overflow incontinence. This type occurs when the body makes more urine than the bladder can hold. Or the bladder is full and can't empty, causing urine to leak. This type is rare in women and is more common in men who have prostate problems. A common symptom is frequent urinating of small amounts. ?Functional incontinence. With this type, urine loss is from thinking or physical problems. It may be from dementia or stroke, or environmental issues. People with this type may not recognize the need to urinate. Treatment depends on the cause. Further evaluation is needed to find the type you have. This will likely include an exam and certain tests. Based on the results, you and your healthcare provider can then plan treatment. Until a diagnosis is made, the home care tips below can help ease symptoms. Home care ?Do pelvic floor muscle exercises, if they are prescribed.?Pelvic floor muscles help support the bladder and urethra. Many women find that their symptoms improve when doing special exercises that strengthen these muscles. To do the exercises, contract the muscles you would use to stop your stream of urine. But do this when you?re not urinating. Hold for 10 seconds, then relax. Repeat 10 to 20 times in a row, at least 3 times a day. Your healthcare provider may give you other instructions for how to do the exercises and how often. ?Keep a bladder diary. This helps track how often and how much you urinate over a set period of time. Bring this diary with you to your next visit with your provider. The information can help your provider learn more about your bladder problem. ?Lose weight, if advised to by your provider. Extra weight puts pressure on the bladder. Your provider can help you create a weight-loss plan that?s right for you. This may include exercising more and making certain diet changes. ?Don't have foods and drinks that may irritate the bladder. These can include alcohol and caffeinated drinks. ?Quit smoking. Smoking and other tobacco use can lead to a long-term (chronic) cough that strains the pelvic floor muscles. Smoking may also damage the bladder and urethra. Talk with your provider about treatments or methods you can use to quit smoking. ?If drinking large amounts of fluid makes you have symptoms,?you may be advised to limit your fluid intake.?You may also be advised to drink most of your fluids during the day and to limit fluids at night. ?If you?re worried about urine leakage or accidents,?you may wear absorbent pads to catch urine.?Change the pads often.?This helps reduce discomfort.?It may also reduce the risk of skin or bladder infections. ?Limit how much fluid you have about 2 to 3 hours before you go to bed. Follow-up care Follow up with your healthcare provider as directed. It may take some to find the right treatment for your problem. But healthy lifestyle changes can be made right away. These include such things as exercising on a regular basis, eating a healthy diet, losing weight (if needed), and quitting smoking. Your treatment plan may include special therapies or medicines. Certain procedures or surgery may also be options. Talk about any questions you have (more content not included)... [facility] Clinical Note 05-17-2024 Note Date & Type Note Facility 05-17-2024 Note Patient Education Ma terials Name: Mirlande Rojas Current Date: 05/17/2024 14:30:59 [place] : 1965 The following sheet(s) are the Patient Education Leaflets for Mirlande Rojas Oncology Breast Health: Breast Self-Awareness What is breast self-awareness? Breast self-awareness is knowing how your breasts normally look and feel. Your breasts change as you go through different stages of your life. So it?s important to learn what is normal for your breasts. Knowing about your breasts helps you spot any changes in them right away. Tell your healthcare provider about any changes. Why is breast self-awareness important? Many experts now say that women should focus on breast self-awareness instead of doing a breast self-examination (BSE). These experts include the [employer] and the [place]. Some experts even advise not teaching women to do a BSE. That?s because research hasn?t shown a clear benefit to doing BSEs. Breast self-awareness is different than a BSE. It isn?t about following a certain method and schedule. It?s about knowing what's normal for your breasts. That way you can spot even small changes right away. If you see any changes, tell your healthcare provider. Changes to look for Call your healthcare provider if you find any changes in your breasts that worry you. These changes may be: ?A lump ?Nipple discharge other than breastmilk, especially if it's bloody ?Swelling ?A change in size or shape ?Skin changes, such as redness, thickening, or dimpling of the skin ?Swollen lymph nodes in the armpit ?Nipple problems, such as pain or redness If you find a lump Call your provider if you find lumpiness in one breast. Also call if you feel something different in the tissue or feel a definite lump. Sometimes lumpiness may be due to menstrual changes. But there may be reason for concern. Your provider may want to see you right away if you have: ?Nipple discharge that is bloody ?Skin changes on your breast, such as dimpling or puckering It?s okay to be upset if you find a lump. Be sure to call your provider right away. Remember that most breast lumps are benign. This means they are not cancer. ? 6716-[address] [employer] [place] [address], [place] [address]. All rights reserved. This information is not intended as a substitute for professional medical care. Always follow your healthcare professional's instructions. Urology Kegel Exercises Kegel exercises don?t need special clothing or equipment. They?re easy to learn and simple to do. And if you do them right, no one can tell you?re doing them, so they can be done almost anywhere. Your healthcare provider, nurse, or physical therapist can answer any questions you have and help you get started. A weak pelvic floor The pelvic floor muscles may weaken due to aging, and vaginal childbirth, injury, surgery, chronic cough, or lack of exercise. If the pelvic floor is weak, your bladder and other pelvic organs may sag out of place. The urethra may also open too easily and allow urine to leak out. Kegel exercises can help you strengthen your pelvic floor muscles. Then they can better support the pelvic organs and control urine flow. How Kegel exercises are done Try each of the Kegel exercises described below. When you?re doing them, try not to move your leg, buttock, or stomach muscles: ?Contract as if you were stopping your urine stream. But do it when you?re not urinating. ?Tighten your rectum as if trying not to pass gas. Contract your anus, but don?t move your buttocks. ?You may place a finger or 2 in the vagina and squeeze your finger with your vagina to learn which muscles to tighten. Try to hold each Kegel for a slow count to 5. You probably won?t be able to hold them for that long at first. But keep practicing. It will get easier as your pelvic floor gets stronger. Eventually, special weights that you place in your vagina may be recommended to help make your Kegels even more effective. Visit your healthcare provider if you have difficulties doing Kegel exercises. Helpful hints Here are some tips to follow: ?Do your Kegels as often as you can. The more you do them, the faster you?ll feel the results. ?Pick an activity you do often as a reminder. For instance, do your Kegels every time you sit down. ?Tighten your pelvic floor before you sneeze, get up from a chair, cough, laugh, or lift. This protects your pelvic floor from injury and can help prevent urine leakage. ? 8122-4253 [employer]. [address] [place] [address], [place] [address]. All rights reserved. This information is not intended as a substitute for professional medical care. Always follow your healthcare professional's instructions. [facility] Procedure note 11-29-2023 Note Date & Type Note Facility 11-29-2023 Procedure note [facility] Procedure note 08-16-2023 Note Date & Type Note Facility 08-16-2023 Procedure note [facility] Evaluation note Note Date & Type Note Facility Evaluation note No assessment information availa rell [facility] Work Phone: History and physical note Note Date & Type Note Facility History and physical note Note Date/Time August 16, 2023 8: 23am [facility] [address] [place], [place] [id number] Gastroenterology H&P Signed Patient: Mirlande Rojas MR#: [id number] : 1965 Acct:[id number] Age/Sex: 57 / F Adm Date: 3 Loc: Room: Type: [facility] Attending Dr: Jordana Ruiz MD Copies [...] signed by Jordana Ruiz MD> 08/16/23822 [facility] Work Phone: History and physical note Note Date & Type Note Facility History and physical note Note Date/Time November 29, 2023 8:05am [facility] [address] [place] [address] Gastroenterology H&P Signed Patient: Mirlande Rojas MR#: [id number] : 1965 Acct:[id number] Age/Sex: 58 / F Adm Date: 4 Loc: Room: Type: [facility] Attending Dr: Jordana Ruiz MD Copies [...] By: <Electronically signed by Jordana Ruiz MD> 11/29/23 0832 [facility] Work Phone: Hospital Discharge instructions Note Date [...] problems. -Follow up with PCP. -Office number [phone]. [facility] Work Phone: Hospital Discharge instructions Note Date [...] NOT operate machinery such as power tools, [employer] mowers, Vestorlywers, sewing machines, etc. for 24 hours. - [...] years. -Follow up with PCP. -Office number [phone]. [facility] Work Phone: Summary Purpose Family History No [...] section and content) DATE CREATED AUTHOR 12/07/2019 Clemente Moore [facility] DATE CREATED AUTHOR AUTHOR'S ORGANIZ ATION 03/01/2023 Nathaniel Banerjee [facility] DATE CREATED AUTHOR AUTHOR'S ORGANIZ ATION 12/08/2023 [facility] DATE CREATED AUTHOR AUTHOR'S ORGANIZ ATION 05/15/2025 [facility] Care Teams (unrecognized sec tion and [...] BE BASED ON THE PRIMARY CLINICAL RECORDS. [employer] provides no warranty or guarantee of the accuracy or completeness of information in this document.
[2025-05-28 09:50] LABS: Hematocrit 42.7 % (36.0-48.0); Hemoglobin 14.3 g/dL (12.0-16.0); Immature Granulocytes Abs Auto 0.03 10^3/uL (0.00-0.03); Immature Granulocytes Pct Auto 0.5 % (0.0-0.5); Lymphocytes Absolute Auto 2.1 10^3/uL (1.2-3.8); Mean Corpuscular HGB Conc 33.5 g/dL (29.9-35.2); Mean Corpuscular Hemoglobin 29.5 pg (26.7-34.0); Mean Corpuscular Volume 88.2 fL (81.0-99.0); Platelet Count 228 10^3/uL (150-450); Red Blood Count 4.84 10^6/uL (4.20-5.40); White Blood Count 5.5 10^3/uL (4.0-11.0)
[2025-05-28 10:17] LABS: Iron 82.0 ug/dL (50.0-170.0)
[2025-05-28 10:28] LABS: Alanine Aminotransferase 28 U/L (14-59); Albumin Globulin Ratio 1.1; Albumin Level 4.0 g/dL (3.4-5.0); Alkaline Phosphatase 70 U/L (46-116); Anion Gap 15.6; Aspartate Amino Transferase 18 U/L (15-37); Blood Urea Nitrogen 15.0 mg/dL (7.0-18.0); Calcium 9.3 mg/dL (8.5-10.1); Carbon Dioxide 26.1 mmol/L (21.0-32.0); Chloride 104 mmol/L (98-107); Cholesterol 167 mg/dL (<=200); Estimated GFR (African America >60 (>=60 mL/min/1.73m^2); Estimated GFR (Non-African Ame >60 (>=60 mL/min/1.73m^2); Free T3 3.06 pg/mL (2.18-3.98); Globulin 3.7 g/dL; Glucose 102 mg/dL (74-106); HDL Cholesterol 65 mg/dL (40-60); Potassium 4.7 mmol/L (3.5-5.1); Sodium 141 mmol/L (136-145); Thyroid Stimulating Hormone 0.745 uIU/mL (0.358-3.740); Total Protein 7.7 g/dL (6.4-8.2); Triglycerides 54 mg/dL (<=150); VLDL CHOLESTEROL 10.8 mg/dL
== END 2025-05-28 09:24 | disposition home or self-care (01) ==
LOC: LAB 09:26
PROVIDERS: PCP Family Medicine; Visit Provider Family Medicine
DX: Z00.00 Encounter for general adult medical examination without abnormal findings (principal)
CPT/HCPCS: 36415; 80053; 80061; 82306; 83036; 83525; 83540; 84436; 84443; 84481; 85025